=== PATIENT | male | born 1970 | race Caucasian/White ===

== ENCOUNTER 2017-12-15 16:22 | Inpatient (IN) | payer OTHER ==
[~2017-12-15] VITALS: Ht 188 cm; Wt 79.0 kg
[2017-12-15] MEDS ORDERED: HYDROcodone/APAP 5 MG/325 MG (LORTAB) TAB PO PRN (20:45)
--- NOTE | 2017-12-15 21:03 | PM&R Post Admission Assessment ---
Post Admission Physician Asses The preadmission screen agrees with the post admission assessment that the patient is a good candidate for inpatient rehabilitation. The patient will have a comprehensive program of inpatient rehabilitation with a goal of maximizing level of functional independence prior to discharge home with family and HHC. The patient will have PT/OT ninety minutes per day, each discipline, five days a week for gait, strengthening, conditioning, balance, ADLs, any patient/family/caregiver training as necessary. Speech therapy to do cognitive assessment and treat as indicated. Rehabilitation nursing to assist with bowel, bladder, skin, wound care, medication administration, pain management. Aquatic Instructor to assist with discharge planning, community reentry. SCD's for DVT prophylaxis. He appears to be well motivated to participate in three hours of therapy a day. He should be able to tolerate three hours of therapy a day from a medical and surgical standpoint. He should benefit from the three hours of therapy a day. He has a reasonable discharge plan, reasonable discharge rehabilitation goals and a supportive family. He has various comorbidities that need to be closely monitored with medications and treatments adjusted on a daily basis as needed. These include: Osteo of left foot DM HTN Barriers to discharge for this patient who had been independent prior to this are for him to be modified independent to supervision for ADLs and mobility skills prior to discharge home with family and HHC, so as to lessen the burden of the caregivers. Risks for this patient include: 1. Fall 2. Fracture 3. DVT 4. Pulmonary embolism 5. Wound infection 6. Skin breakdown 7. Contractures 8. Poorly controlled pain 9. Urinary retention 10. UTI 11. Respiratory infection 12. Aspiration 13, Poorly controlled DM 14. Poorly controlled HTN Estimated Length of Stay: 14 days Prognosis: Rehab prognosis appears good for goal of discharge home with spouse and HHC modified independent to supervision for ADLs and mobility skills. KEDAR KUHN MD Dec 15, 2017 21:03
[2017-12-15] MEDS: MILK OF MAGNESIA 400 MG/5 ML 30 ML UDC PO PRN (21:45)
[2017-12-15] MEDS: SENNA W/DOCUSATE (SENOKOT S) TABLET PO SCH (21:45)
[2017-12-15] MEDS ORDERED: metFORMIN 500 MG (GLUCOPHAGE) TAB ONE (21:48)
--- NOTE | 2017-12-15 21:50 | HISTORY AND PHYSICAL ---
DATE OF SERVICE: CHIEF COMPLAINT: Difficulty with walking. HISTORY OF PRESENT ILLNESS: The patient is a 47-year-old male, who was admitted to [facility] with pain in the left heel due to diabetic foot ulcer. Orthopedics was consulted. The patient was taken to the OR, where he underwent extensive debridement of the area. Pathology report showed acute and chronic osteomyelitis. ID was consulted. Unasyn was ordered every 6 hours until 01/22/2018. The patient's type 2 diabetes mellitus was managed with metformin. The patient had been independent prior to this and working in the [employer]. He lives in [place] with family. Currently, he requires assistance for his ADLs and mobility skills as well as his scheduled IV antibiotics. He may toe touch on the left. Nonweightbearing left heel.Currently he is Independent for eating and setup for grooming as well as Upper body dressing Min assist for lower body dressing Min assist for transfers,He is min assist for gait with WW PAST MEDICAL HISTORY: Diabetes mellitus type 2.newly diagnosed HTN PAST SURGICAL HISTORY: As per above. ALLERGIES: GLUTEN. FAMILY HISTORY: Noncontributory. SOCIAL HISTORY: He is single and lives with his brother in [facility]. He works for the [employer]. REVIEW OF SYSTEMS: A 10-point review of systems is significant for left foot pain. He does complain of constipation. MEDICATIONS: Amlodipine 10 mg p.o. daily, Lactinex one tablet p.o. b.i.d., lisinopril 20 mg p.o. daily, metformin 1000 mg p.o. b.i.d., hydrocodone/APAP 5 mg 1 tablet p.o. q. 6h. p.r.n. moderate pain, Unasyn IV q. 6h. PHYSICAL EXAMINATION: GENERAL: Significant for a pleasant male appearing his stated age, sitting up at the side of bed in no acute distress. VITAL SIGNS: Blood pressure is 137/93. He is afebrile. HEENT: Vision, speech, hearing is grossly intact. No oral lesion is noted. NECK: Supple without mass. HEART: Regular rhythm. LUNGS: Clear. ABDOMEN: Soft and nontender. Bowel sounds are present. EXTREMITIES: The left foot is ANGELO wrapped. There is no lower edema, no calf tenderness on the right. MUSCULOSKELETAL: The patient has functional active range of motion of both upper extremities and right lower extremity. NEUROLOGIC: Sensation is grossly intact to touch. Cognition is grossly intact. Strength good in both upper limbs,5/5 right lower limb. Left lower limb 4+/5. FINAL IMPRESSION: 1. Ambulatory dysfunction secondary to diabetic foot ulcer resulting in group B strep osteomyelitis status post debridement at [facility] and on IV antibiotics for duration as per above. 2. Diabetes mellitus, controlled with medication. 3. Hypertension, controlled with medication. PLAN: The patient will have a comprehensive program of inpatient rehabilitation with goal of maximizing the level of functional independence prior to discharge home with family and home health care. His commercial insurance has approved his stay here. The patient will have PT, OT 90 minutes per day each discipline, 5 days a week for 2 weeks for gait, strengthening, conditioning, balance, ADLs,as wellas any patient, family caregiver training as necessary, any adaptive equipment and training as necessary. Speech therapy to do cognitive assessment and treat as indicated. Rehabilitation nursing to assist with bowel, bladder, skin, wound care, medication administration, IV antibiotic administration. Routine admission labs. Accu-Cheks b.i.d. or more often as needed. custodial worker to assist with discharge planning, community reentry. I will ask Dr. Lucia and family medicine to assist with medical management as needed.Rn indicates that Patient needs a wound vac-will consult Dr Yeh. ESTIMATED LENGTH OF STAY: Two weeks. PROGNOSIS: Rehab prognosis appears good for goal of discharging home with family modified independent to supervision for ADLs or mobility skills. At some point, he will have his IV antibiotics continued on an outpatient basis. Social work will help facilitate this through coordination with the patient's insurance company. DIET: Carb consistent. CODE STATUS: Full code. Job ID: [id number] DocumentID: [id number] Dictated Date: 12/15/2017 21:13:55 Line Ordering Clinician Date: 12/15/2017 21:49:39 Dictated By: KEDAR KUHN MD [facility]
[2017-12-15] MEDS: metFORMIN 500 MG (GLUCOPHAGE) TAB PO SCH (21:52)
[2017-12-16] MEDS ORDERED: AMPICILLIN/SULBACTAM 3 GM VIAL (UNASYN) ONE ×2 (00:07→01:07)
[2017-12-16] MEDS ORDERED: NS (IVPB) 100 ML ONE ×2 (00:13→05:27)
[2017-12-16] MEDS: AMPICILLIN/SULBACTAM INJECTION 3 GM in NS (IVPB) 100 ML IV SCH ×4 (00:38→18:02)
[2017-12-16 05:49] VITALS: BP 122/79
[2017-12-16 05:52] LABS: BASOPHILS % (AUTO) 1 % (0-10); EOSINOPHILS # (AUTO) 0.1 10^3/uL (0.0-0.3); EOSINOPHILS % (AUTO) 2 % (0-10); HEMATOCRIT 37 % (40-54); HEMOGLOBIN 12.6 G/DL (13.3-17.7); LYMPHOCYTES # (AUTO) 1.2 X 10^3 (1.0-4.0); LYMPHOCYTES % (AUTO) 17 % (12-44); MEAN CORPUSCULAR HEMOGLOBIN 30 PG (25-34); MEAN CORPUSCULAR HGB CONC 34 G/DL (32-36); MEAN CORPUSCULAR VOLUME 88 FL (80-99); MEAN PLATELET VOLUME 9.8 FL (7.4-10.4); MONOCYTES # (AUTO) 0.5 X 10^3 (0.0-1.0); MONOCYTES % (AUTO) 8 % (0-12); NEUTROPHILS # (AUTO) 4.9 X 10^3 (1.8-7.8); NEUTROPHILS % (AUTO) 73 % (42-75); PLATELET COUNT 217 10^3/uL (130-400); RED BLOOD COUNT 4.17 10^6/uL (4.35-5.85); RED CELL DISTRIBUTION WIDTH 13.8 % (10.0-14.5); WHITE BLOOD COUNT 6.8 10^3/uL (4.3-11.0)
[2017-12-16 06:13] LABS: ALANINE AMINOTRANSFERASE 18 U/L (0-55); ALBUMIN 3.3 GM/DL (3.2-4.5); ALKALINE PHOSPHATASE 78 U/L (40-136); BILIRUBIN,TOTAL 0.6 MG/DL (0.1-1.0); BUN/CREATININE RATIO 23; CALCIUM 9.2 MG/DL (8.5-10.1); CARBON DIOXIDE 25 MMOL/L (21-32); CHLORIDE 104 MMOL/L (98-107); CREATININE SERUM 0.74 MG/DL (0.60-1.30); GFR ESTIMATED > 60; GLUCOSE 117 MG/DL (70-105); SODIUM 140 MMOL/L (135-145)
[2017-12-16] MEDS: metFORMIN 500 MG (GLUCOPHAGE) TAB PO SCH ×2 (06:18→18:02)
[2017-12-16] MEDS ORDERED: INFLUENZA TRIvalent 2017-2018 0.5 ML/45 MCG SYR IM ONE (07:00)
--- NOTE | 2017-12-16 08:08 | Consultation ---
History of Present Illness History of Present Illness Patient Consulted On(azucena/time) 12/16/17 08:03 Time Seen by Provider: 08:05 History of Present Illness acute and chronic osteomyelitis of left foot Patient is a 47-year-old white male. Patient first had a crack in his heel and got worse and then infected. patient returns is a diabetic and Patient was sent to [facility] in [place] in the left heel was debrided Patient needs 6 weeks of IV antibiotic Unasyn. Family history father diabetic type II denies asthma TB lung disease cancer Allergies and Home Medications Allergies Coded Allergies: gluten (Verified Allergy, Mild, 12/15/17) Past Nkhmsdy-Ipayls-Vqqbcf Hx Patient Social History Alcohol Use: Rarely Uses Number of Drinks Today: 0 Recreational Drug Use: No Smoking Status: Never a Smoker Recent Foreign Travel: No Contact w/Someone Who Travel: No Recent Infectious Disease Expo: No Recent Hopitalizations: Yes (diabetic foot ulcer) Seasonal Allergies Seasonal Allergies: No Surgeries History of Surgeries: Yes Respiratory History of Respiratory Disorde: No Currently Using CPAP: No Currently Using BIPAP: No Cardiovascular History of Cardiac Disorders: Yes Neurological History of Neurological Disord: No Genitourinary History of Genitourinary Disor: No Gastrointestinal History of Gastrointestinal Di: No Musculoskeletal History of Musculoskeletal Dis: No Endocrine History of Endocrine Disorders: Yes HEENT History of HEENT Disorders: No Cancer History of Cancer: No Psychosocial History of Psychiatric Problem: No Integumentary History of Skin or Integumenta: Yes (very dry skin on feet and legs) Skin/Integumentary Disorders: Recent Skin Changes Blood Transfusions History of Blood Disorders: No Family Medical History Family Medial History: Completed stroke 19 FATHER Diabetes mellitus 19 FATHER Review of Systems-General Constitutional: no symptoms reported EENTM: no symptoms reported Respiratory: no symptoms reported Cardiovascular: no symptoms reported Gastrointestinal: no symptoms reported Genitourinary: no symptoms reported Physical Exam-General Problems Physical Exam Vital Signs Vital Sign - Last 12Hours 12/16/17 05:49 Temp 97.9 Pulse 69 Resp 20 B/P (MAP) 122/79 (93) Pulse Ox 97 O2 Delivery Room Air Capillary Refill : General Appearance: WD/WN, no apparent distress Eyes: Bilateral Eye Normal Inspection HEENT: normal ENT inspection Neck: non-tender, full range of motion Respiratory: chest non-tender, lungs clear, normal breath sounds, no respiratory distress, no accessory muscle use Cardiovascular: regular rate, rhythm Gastrointestinal: non tender Assessment/Plan Assessment/Plan Admission Diagnosis/Plan acute and chronic osteomyelitis of left heel. Diabetes. Hypertension. Clinical Quality Measures DVT/VTE Risk/Contraindication: Risk Factor Score Per Nursin RFS Level Per Nursing on Admit: 4+=Very High ASHWIN DAS DO Dec 16, 2017 08:07
[2017-12-16] MEDS: LACTOBACILLUS Acidoph/Bulgar (LACTINEX/FLORANEX) TAB PO SCH ×2 (08:14→20:28)
[2017-12-16] MEDS: SENNA W/DOCUSATE (SENOKOT S) TABLET PO SCH ×2 (08:14→20:28)
[2017-12-16] MEDS: amLODIPine 5 MG (NORVASC) TAB PO SCH (08:14)
[2017-12-16] MEDS: MILK OF MAGNESIA 400 MG/5 ML 30 ML UDC PO PRN (08:15)
[2017-12-16] MEDS: lisINopril 20 MG (ZESTRIL) TAB PO SCH (08:15)
[2017-12-16 08:31] LABS: CHOLESTEROL 146 MG/DL (< 200); HDL CHOLESTEROL 24 MG/DL (40-60); TRIGLYCERIDES 177 MG/DL (<150); VLDL CHOLESTEROL 35 MG/DL (5-40)
--- NOTE | 2017-12-16 10:36 | ST Cognitive Linguistic Eval ---
Speech Evaluation-General Medical Diagnosis s/p Left Heel Debridement Onset Date: Dec 16, 2017 Therapy Diagnosis Therapy Diagnosis: Cognitive Functions Grossly WNL Precautions Precautions/Isolations: Fall Prevention, Standard Precautions, Pressure Ulcer Referral Referring Physician: Dr. Leoncio Lee Reason for Referral: Evaluation/Treatment Cognitive Evaluation Medical History Pertinent Medical History: DM Current History The patient recently underwent left heel debridement surgery at [facility]. The patient is admitted to [facility] for rehabilitation. Reviewed History: Yes Social History Home: Multilevel Current Living Status: Friend Speech PLF-Current Status Prior Level of Function The patient denied prior challenges with speech, language, or cognition. Subjective The patient was laying in bed upon entrance. The patient greeted the clinician appropriately and was agreeable to participation in the cognitive evaluation. To note, the patient is extremely verbose and requires frequent redirection to task and topic. Language Eval: Auditory Comprehends Simple Yes/No Ques: Functional Indent/Objects [place]: Functional Ident/Pics in Multiple [place]: Functional Follows 1-Step Commands: Functional Follows Complex Directions: Functional Follows General Conversations: Functional Language Eval: Verbal Language Completes Spontaneous Greeting: Functional Produces Auto, Serial Info: Functional Imitates Simple Words/Phrases: Functional Word Finding: Functional Requests Basic Needs: Functional States Basic Personal Info: Functional Expresses Complex Ideas: Functional Cognitive Patient Orientation The patient was independently oriented to self, location, city, month, day of week, and year. Objective Cognitive Domain Attention: Mild Memory: WNL Problem Solving: Mild (Due to patient's baseline attention deficit and impulsivity.) Objective Impression The patient demonstrates cognitive linguistic functions grossly within normal limits. The patient does require frequent redirection to task and intermittent impulsivity. Communication/Social Cognition Comprehension: 5 Expression: 5 Social Interaction: 5 Problem Solvin Memory: 5 Speech Patient Assess Expression of Ideas/Wants: Expression (4) Understanding V[place]al Content: Understands (4) Brief Interview-Mental Status: Yes Repetition of Three Words: Three (3) Temporal Orientation: Year: Correct (3) Temporal Orientation: Month: Accurate within 5 days(2) Temporal Orientation: Day: Correct (1) Recall : Wear to say "Sock": Yes, no cue required (2) Recall : Color: Yes, no cue required (2) Recall : Bed: Yes, no cue required (2) Speech-Plan Treatment Plan Speech Therapy Treatment Plan: Discontinue ST Evaluation, only. Frequency: Modified Program (IRF) Estimated Hrs Per Day: Other Rehab Potential: Fair Safety Risks/Education Teaching Recipient: Patient Teaching Methods: Discussion Response to Teaching: Verbalize Understanding Education Topics Provided: Results, Recommendations, Plan of Care Time Speech Therapy Time In: 09:30 Speech Therapy Time Out: 09:50 Total Billed Time: 20 Billed Treatment Time 1, BHAVNA LOPEZ Dec 16, 2017 10:35
--- NOTE | 2017-12-16 11:55 | Physical Therapy Evaluation ---
PT Evaluation-General Medical Diagnosis Admission Date Dec 15, 2017 at 19:00 Medical Diagnosis: s/p Left Heel Debridement Onset Date: Dec 08, 2017 Therapy Diagnosis Therapy Diagnosis: Poor balance, activity tolerance, strength Height/Weight Height (Feet): 6 Height (Inches): 2.00 Weight (Pounds): 176 Weight (Ounces): 9.0 Precautions Precautions/Isolations: Fall Prevention, Standard Precautions, Pressure Ulcer Weight Bear Status Right Lower Extremity: Right Full Weight Bearing Left Lower Extremity: Left Touch Toe Bearing Patient is toe touch on the left but heel is not allowed to touch the floor. Referral Physician: Leoncio Lee MD Reason for Referral: Evaluation/Treatment Medical History Pertinent Medical History: DM, HTN Additional Medical History Chronic osteomyelitis Current History Pt presented with acute and chronic osteomyeltitis and a diabetic foot ulcer on the L heel. Reviewed History: Yes Social History Home: Multilevel Current Living Status: Friend Entry Into Home: Stairs With Railing PT Steps Into Home: 1 PT Steps Inside Home: 12 Pt lives with two male roommates Prior/Core FIM Prior Level of Function Functional [place] Measure 0=Not Assessed/NA 4=Minimal Assistance 1=Total Assistance 5=Supervision or Setup 2=Maximal Assistance 6=Modified [place] 3=Moderate Assistance 7=Complete [place] Bed Mobility: 7 Transfers (B,C,W/C) (FIM): 7 Gait: 7 Locomotion: 7 Pt did not use any AD prior to admission. PT Evaluation-Current Subjective Pt is sitting in bed in room pre tx and has no complaints of bed. Pt agrees to PT. Pain Numeric Pain Scale: 0-No Pain Pt/Family Goals [place] at home Objective Patient Orientation: Person, Place, Situation ANGELO wrap on the L heel. Pt reports he is receiving a wound vac later this afternoon. ROM/Strength ROM Lower Extremities WNL Strenght Lower Extremities Grossly 5/5 RLE, 4+/5 LLE Neuromuscular (Tone, Coordination, Reflexes) NT Sensory Vision: Functional Hearing: Functional Sensation Right Lower Extremit: Intact Sensation Left Lower Extremity: Intact Sensation Lower Extremities Pt reported the ANGELO wrap makes it difficult to feel on the bottom of the foot. Transfers Functional [place] Measure 0=Not Assessed/NA 4=Minimal Assistance 1=Total Assistance 5=Supervision or Setup 2=Maximal Assistance 6=Modified [place] 3=Moderate Assistance 7=Complete IndependenceIRFPAI Quality Coding Scale 6 Independent with activity with or without an assistive device 5 Patient requires set up or clean up by helper. Patient completes activity by themselves 4 Supervision or touching assist (CGA). [place] provide cues , steadying assist 3 The helper provides less than half the effort to complete the activity 2 The helper provides more than half the effort to complete the activity 1 Dependent. The helper does all the effort to complete an activity 7 Patient refused to complete or attempt activity 9 The patient did not perform the activity before the current illness or injury 88 Not attempted due to Medical conditions or safety concerns Transfers (B, C, W/C) (FIM): 4 Scootin Rollin Roll Left to Right (QC): 4 Supine to/from Sit: 5 Sit to/from Stand: 5 Sit to Lying (QC): 4 Lying to Sitting/Side of Bed(Q: 4 Sit to Stand (QC): 4 Chair/Cgv-dn-Ohtvt Xfer(QC): 4 Car Transfer (QC): 4 Pt requires supervision during all transfers. Pt needs reminders for safety and hand placement. Gait Does the Patient Walk?: Yes Mode of Locomotion: Walk Anticipated Mode of Locomotion: Walk Gait (FIM): 5 Distance (FIM): 3=150 ft Walk 10 feet (QC): 4 Walk 50 ft with 2 Turns(QC): 4 Walk 150 ft (QC): 4 Walking 10ft/uneven surface-QC: 4 Distance: 300 feet x1, 100 feet x1 Gait Level of Assist: 5 Gait Persons Needed: 1 Gait Assistive Device: FWW Comments/Gait Description Pt is TTWB on the LLE. On the RLE, pt does not achieve heel-to-toe gait pattern. Pt reports no pain or weakness in the RLE. This may be due to compensation of the TTWB precaution. Pt presents with reciprocal gait pattern. Wheelchair Training Does the Pt Use a Wheelchair?: No Stairs Stairs (FIM): 5 #of Steps: 12 Level of Assist: 5 1 Step (curb) (QC): 4 4 Steps (QC): 4 12 Steps (QC): 4 Balance Sitting Static: Normal Sitting Dynamic: Normal Standing Static: Fair Standing Dynamic: Fair Picking up an Object (QC): 4 Special Test Comments [place] Balance Assessment: indicating moderate fall risk Treatment Pt performed balance exercises in the form of sit to stands and standing with eyes closed. Assessment/Needs Pt requires SBA during all transfers. Pt requires CGA while using stairs. Pt is impulsive and requires verbal cues for safety and hand placement. According to the Tinetti, pt had trouble turning 360 degrees, sit to stand transfer, and standing with eyes closed. Pt was unsteady while turning and with standing with eyes closed. Pt required more than one attempt to stand without using hands. Pt will benefit from formal PT services to address the impairments mentioned. Patient does bear weight through the left toes but keeps his heel off the ground. Rehab Potential: Fair Post Rehab Potential-Barriers: Diabetic foot ulcer on L heel Equipment Needs FWW PT Short Term Goals Short Term Goals Time Frame: Dec 23, 2017 Transfers (B,C,W/C) (FIM): 6 Gait (FIM): 5 Gait Distance Comment: 500' Gait Level of Assist: 6 Gait Assistive Device: FWW PT Job Interviewer Goals Senior Care Goals PT Job Interviewer Goals Time Frame: Jan 06, 2018 Transfers (B,C,W/C) (FIM): 6 Sit to Lying (QC): 6 Lying-Sitting on Side/Bed(QC): 6 Sit to Stand (QC): 6 Rollin Roll Left to Right (QC): 6 Chair/Ebi-ut-Peppo Xfer(QC): 6 Car Transfer (QC): 6 Does the Patient Walk: Yes Gait (FIM): 6 Distance: 800' Walk 10 feet (QC): 6 Walk 10ft-Uneven Surface(QC): 6 Walk 50ft with 2 Turns (QC): 6 Walk 150 ft (QC): 6 Gait Level of Assist: 6 Gait Assistive Device: FWW Does the Pt use WC or Scooter?: No Stairs (FIM): 6 # of Steps: 12 1 Step (curb) (QC): 6 4 Steps (QC): 6 12 Steps (QC): 6 Stairs Level Of Assist: 6 Picking up an Object (QC): 6 PT Plan Problem List Problem List: Activity Tolerance, Functional Strength, Safety, Balance, Gait, Transfer, Bed Mobility, ROM Treatment/Plan Treatment Plan: Continue Plan of Care Treatment Plan: Bed Mobility, Education, Functional Activity My, Functional Strength, Group Therapy, Gait, Safety, Therapeutic Exercise, Transfers Treatment Duration: Jan 06, 2018 Frequency: At least 5 of 7 days/Wk (IRF) Estimated Hrs Per Day: 1.5 hours per day Patient and/or Family Agrees t: Yes Safety Risks/Education Patient Education: Gait Training, Transfer Techniques, Steps, Reviewed Precautions, Correct Positioning, Safety Issues Teaching Recipient: Patient Teaching Methods: Demonstration, Discussion Response to Teaching: Reinforcement Needed Discharge Recommendations Plan Pt will improve bed mobility, gait training, and stair training, as well as activity tolerance and balance in order to be independent at home. Therapy D/C Recommendations: Home Independently Equpiment Recommendations-D/C: Front Wheeled Walker Time/GCodes Time In: 1100 Time Out: 1200 Total Billed Treatment Time: 60 Total Billed Treatment 1 visit 30 min EVM 15 min EX 15' NM THAIS LOPES PT Dec 16, 2017 11:55
--- NOTE | 2017-12-16 12:51 | Occupational Therapy Eval ---
OT Evaluation-General/PLF Medical Diagnosis Admission Date Dec 15, 2017 at 19:00 Medical Diagnosis: s/p Left Heel Debridement Onset Date: Dec 16, 2017 Therapy Diagnosis Therapy Diagnosis: decreased self care skills Height/Weight Height (Feet): 6 Height (Inches): 2.00 Weight (Pounds): 176 Weight (Ounces): 9.0 Precautions Precautions/Isolations: Fall Prevention, Standard Precautions, Pressure Ulcer Safety Interventions: Move Closer to Desk Weight Bear Status Weight Bearing Restriction: Touch Toe Bearing Location Restriction: L LE Referral Physician: Leoncio Lee MD Medical History Pertinent Medical History: DM, HTN Current History Pt had diabetic ulcer on left heel. Presented with osteomyelitis Reviewed History: Yes Social History Home: Multilevel Current Living Status: Friend Entry Into Home: Stairs With Railing Steps Into Home: 1 Steps Inside Home: 12 ADL-Prior Level of Function ADL PLOF Comments Pt reports being independent with all self care and mobility. Works multimedia editor. DME/Equipment: Grab Bars, Shower, Tub/Shower Drive Self: Yes OT Current Status Subjective Pt in bed, agrees to therapy. Pt denies pain at this time. Mental Status/Objective Patient Orientation: Person, Place, Situation Current Glasses/Contacts: No Hearing Aids: No Dentures/Partials: No Hand Dominance: Right Upper Extremity ROM Grossly WFL Upper Extremity Coordination Intact Upper Extremity Sensation Intact per pt report Upper Extremity Strength Grossly WFL ADL-Treatment ADL-Current Pt supine to sit with modified independence. Pt completed sponge bath while seated EOB. Upper body bathing completed with set up. Pt able to wash lower body with SBA for balance. Left foot not addressed secondary to dressing on heel. Don pullover shirt with set up. Pt donned underwear with SBA for standing balance during pant hike. Pt required minimal assistance to thread left LE through pant leg, but was able to complete rest of task with SBA. Pt doffed/ donned right sock with set up. Pt declined to remove left sock secondary to dressing on heel. Gait to restroom with FWW. Pt able to maintain weight bearing status. Pt stood at sink for grooming tasks. Pt brushed teeth and combed hair with set up. Pt did not have any LOB while standing and was able to maintain TTWB. Pt demonstrated ability to perform toilet transfer with SBA using grab bar. Pt returned to EOB with needs met and PT present after session. Functional [place] Measure 0=Not Assessed/NA 4=Minimal Assistance 1=Total Assistance 5=Supervision or Setup 2=Maximal Assistance 6=Modified [place] 3=Moderate Assistance 7=Complete IndependenceIRFPAI Quality Coding Scale 6 Independent with activity with or without an assistive device 5 Patient requires set up or clean up by helper. Patient completes activity by themselves 4 Supervision or touching assist (CGA). [place] provide cues , steadying assist 3 The helper provides less than half the effort to complete the activity 2 The helper provides more than half the effort to complete the activity 1 Dependent. The helper does all the effort to complete an activity 7 Patient refused to complete or attempt activity 9 The patient did not perform the activity before the current illness or injury 88 Not attempted due to Medical conditions or safety concerns Eating (FIM): 7 (Pt reports feeding self and managing containers without assistance) Eating (QC): 6 Grooming (FIM): 5 Oral Hygiene (QC): 5 Bathing (FIM): 5 Shower/Bathe Self (QC): 4 Upper Body Dressing (FIM): 5 Upper Body Dressing (QC): 5 Lower Body Dressing (FIM): 4 Lower Body Dressing (QC): 4 On/Off Footwear (QC): 5 Toilet/Commode Transfer (FIM): 5 Toilet Transfer (QC): 4 Shower Transfer (FIM): 0 Education OT Patient Education: Rehab process Teaching Recipient: Patient Teaching Methods: Discussion Response to Teaching: Verbalize Understanding OT Short Term Goals Short Term Goals Transfers (B,C,W/C) (FIM): 6 1=Demonstrate adherence to instructed precautions during ADL tasks. 2=Patient will verbalize/demonstrate understanding of assistive devices/ modifications for ADL. 3=Patient will improve strength/tolerance for activity to enable patient to perform ADL's. OT Retirement Goals Mobile Architect Goals Time Frame: Jan 06, 2018 Eating (FIM): 7 Eating (QC): 6 Groomin Oral Hygiene (QC): 6 Bathing(FIM): 6 Shower/Bathe Self (QC): 6 Upper Body Dressing(FIM): 6 Upper Body Dressing (QC): 6 Lower Body Dressing(FIM): 6 Lower Body Dressing (QC): 6 On/Off Footwear (QC): 6 Toileting(FIM): 6 Toileting Hygiene (QC): 6 Toilet/Commode Transfer(FIM): 6 Toilet/Commode Transfer (QC): 6 Shower Transfer(FIM): 6 (If cleared to shower) Additional Goals: 2-Verbalize Understanding, 3-ImproveStrength/My 1=Demonstrate adherence to instructed precautions during ADL tasks. 2=Patient will verbalize/demonstrate understanding of assistive devices/ modifications for ADL. 3=Patient will improve strength/tolerance for activity to enable patient to perform ADL's. OT Education/Plan Problem List/Assessment Assessment: Decreased UE Strength, Dependent Transfers, Impaired Funct Balance , Impaired Self-Care Skills Pt to benefit from skilled OT intervention for ADL training, transfers, strengthening, and home safety education to increase level of independence and allow safe return home. Discharge Recommendations Plan/Recommendations: Continue POC Treatment Plan/Plan of Care Treatment,Training & Education: Yes Patient would benefit from OT for education, treatment and training to promote independence in ADL's, mobility, safety and/or upper extremity function for ADL' s. Plan of Care: ADL Retraining, Functional Mobility, Group Exercise/Act as Ind, UE Funct Exercise/Act Treatment Duration: Jan 06, 2018 Frequency: At least 5 of 7 days/Wk (IRF) Estimated Hrs Per Day: 1.5 hours per day Agreement: Yes Rehab Potential: Good Time/GCodes Start Time: 10:00 Stop Time: 11:00 Total Time Billed (hr/min): 60 Billed Treatment Time 1 visit, EVL(15minutes), ADLx3(45minutes) CHANCE JIMENEZ OT Dec 16, 2017 12:51
--- NOTE | 2017-12-16 14:21 | Occupational Ther Daily Note ---
OT Current Status-Daily Note Subjective Pt sitting EOB, agrees to treatment. Pt has no c/o pain. Mental Status/Objective Functional [place] Measure 0=Not Assessed/NA 4=Minimal Assistance 1=Total Assistance 5=Supervision or Setup 2=Maximal Assistance 6=Modified [place] 3=Moderate Assistance 7=Complete [place] ADL-Treatment Functional [place] Measure 0=Not Assessed/NA 4=Minimal Assistance 1=Total Assistance 5=Supervision or Setup 2=Maximal Assistance 6=Modified [place] 3=Moderate Assistance 7=Complete IndependenceIRFPAI Quality Coding Scale 6 Independent with activity with or without an assistive device 5 Patient requires set up or clean up by helper. Patient completes activity by themselves 4 Supervision or touching assist (CGA). [place] provide cues , steadying assist 3 The helper provides less than half the effort to complete the activity 2 The helper provides more than half the effort to complete the activity 1 Dependent. The helper does all the effort to complete an activity 7 Patient refused to complete or attempt activity 9 The patient did not perform the activity before the current illness or injury 88 Not attempted due to Medical conditions or safety concerns Other Treatment Pt performed gait to therapy gym with FWW, TTWB left LE with cues for walker safety. Arm bike x12 minutes to increase overall strength and activity tolerance needed for functional tasks. Pt completed task with moderate resistance and steady pace. No rest breaks needed. Pt performed bilateral UE exercises to increase strength needed for ADLs and transfers. Pt performed shoulder flexion, abduction, biceps curls, and triceps extension exercises x25 reps with moderate resistance (Red) theraband. Pt returned to room, in bed with needs met after session. OT Short Term Goals Short Term Goals Transfers (B,C,W/C) (FIM): 6 1=Demonstrate adherence to instructed precautions during ADL tasks. 2=Patient will verbalize/demonstrate understanding of assistive devices/ modifications for ADL. 3=Patient will improve strength/tolerance for activity to enable patient to perform ADL's. OT Crust Sorter Goals Crust Sorter Goals Time Frame: Jan 06, 2018 Eating (FIM): 7 Eating (QC): 6 Groomin Oral Hygiene (QC): 6 Bathing(FIM): 6 Shower/Bathe Self (QC): 6 Upper Body Dressing(FIM): 6 Upper Body Dressing (QC): 6 Lower Body Dressing(FIM): 6 Lower Body Dressing (QC): 6 On/Off Footwear (QC): 6 Toileting(FIM): 6 Toileting Hygiene (QC): 6 Toilet/Commode Transfer(FIM): 6 Toilet/Commode Transfer (QC): 6 Shower Transfer(FIM): 6 (If cleared to shower) Additional Goals: 2-Verbalize Understanding, 3-ImproveStrength/My 1=Demonstrate adherence to instructed precautions during ADL tasks. 2=Patient will verbalize/demonstrate understanding of assistive devices/ modifications for ADL. 3=Patient will improve strength/tolerance for activity to enable patient to perform ADL's. OT Education/Plan Discharge Recommendations Plan/Recommendations: Continue POC Treatment Plan/Plan of Care Patient would benefit from OT for education, treatment and training to promote independence in ADL's, mobility, safety and/or upper extremity function for ADL' s. Plan of Care: ADL Retraining, Functional Mobility, Group Exercise/Act as Ind, UE Funct Exercise/Act Treatment Duration: Jan 06, 2018 Frequency: At least 5 of 7 days/Wk (IRF) Estimated Hrs Per Day: 1.5 hours per day Agreement: Yes Rehab Potential: Fair Time/GCodes Start Time: 13:30 Stop Time: 14:00 Total Time Billed (hr/min): 30 Billed Treatment Time 1 visit, EXx2(30minutes) CHANCE JIMENEZ OT Dec 16, 2017 14:21
--- NOTE | 2017-12-16 14:45 | PM & R (SOAP) Progress Note ---
Subjective Time Seen by Provider: 08:00 Subjective/Events-last exam Patient was seen in his room this AM Patient Min assist for transfers and gait TTWB LLE.Discussed case with RN Appreciate Dr caballero note and current meds and labs,BG and Triglycerides elevated,Dietary consult ordered DR Yeh to see re need for ongoing wound vac.ST note some impulsivity which affects concentrration and attention which are chronic and she has signed off. Review of Systems Musculoskeletal: leg pain Objective Exam Last Set of Vital Signs Vital Signs Date Time Temp Pulse Resp B/P (MAP) Pulse Ox O2 Delivery O2 Flow Rate FiO2 12/16/17 09:00 Room Air 12/16/17 05:49 97.9 69 20 122/79 (93) 97 Capillary Refill : I&O Intake and Output 12/16/17 00:00 Daily Weight Change No General: Alert, Oriented X3, Cooperative, No Acute Distress HEENT: Atraumatic, PERRLA, EOMI, Mucous Memb Moist/[place] Neck: Supple, No JVD Lungs: Clear to Auscultation Heart: Regular Rate Abdomen: Normal Bowel Sounds, Soft, No Tenderness Extremities: Other (Trace edema left foot wrapped with kerlex) Neuro: Other (Normal strength except left leg which is mildly impaired) Results Lab Laboratory Tests 12/15/17 21:51: Glucometer 259H 12/16/17 05:40: White Blood Count 6.8, Red Blood Count 4.17L, Hemoglobin 12.6L, Hematocrit 37L, Mean Corpuscular Volume 88, Mean Corpuscular Hemoglobin 30, Mean Corpuscular Hemoglobin Concent 34, Red Cell Distribution Width 13.8, Platelet Count 217, Mean Platelet Volume 9.8, Neutrophils (%) (Auto) 73, Lymphocytes (%) (Auto) 17, Monocytes (%) (Auto) 8, Eosinophils (%) (Auto) 2, Basophils (%) (Auto) 1, Neutrophils # (Auto) 4.9, Lymphocytes # (Auto) 1.2, Monocytes # (Auto) 0.5, Eosinophils # (Auto) 0.1, Basophils # (Auto) 0.0, Sodium Level 140, Potassium Level 4.0, Chloride Level 104, Carbon Dioxide Level 25, Anion Gap 11, Blood Urea Nitrogen 17, Creatinine 0.74, Estimat Glomerular Filtration Rate > 60, BUN/ Creatinine Ratio 23, Glucose Level 117H, Calcium Level 9.2, Total Bilirubin 0.6 , Aspartate Amino Transf (AST/SGOT) 19, Alanine Aminotransferase (ALT/SGPT) 18, Alkaline Phosphatase 78, Total Protein 7.0, Albumin 3.3, Triglycerides Level 177H, Cholesterol Level 146, LDL Cholesterol Direct 96, VLDL Cholesterol 35, HDL Cholesterol 24L Assessment/Plan Assessment Acute on chronic osteomyelitis s/p debridement OSH and on IV antibiotics as per H&P DM meds being adjusted HTN controlled with meds MIld attention deficit HLP Plan Continue PT/OT and wound care -Dr Yeh consulted re wound vac Team Conference tomorrow 12-17-17 May need to focus on W/C level of function due to Limited WBS LLE and need for wound vac-Will f/u with DR Yeh re this KEDAR KUHN MD Dec 16, 2017 14:45
--- NOTE | 2017-12-16 15:54 | Physical Therapy Daily Note ---
PT Daily Note-Current Subjective Pt laying Supine in bed upon arrival. Pt agrees to PT for Supine Ex. Pain Numeric Pain Scale: 5-Moderate Pain Location: Left Location Body Site: Foot Pain Description: Ache Mental Status Patient Orientation: Person, Place Attachments: Other-See Comments (DON sahu) Transfers Functional [place] Measure 0=Not Assessed/NA 4=Minimal Assistance 1=Total Assistance 5=Supervision or Setup 2=Maximal Assistance 6=Modified [place] 3=Moderate Assistance 7=Complete IndependenceIRFPAI Quality Coding Scale 6 Independent with activity with or without an assistive device 5 Patient requires set up or clean up by helper. Patient completes activity by themselves 4 Supervision or touching assist (CGA). [place] provide cues , steadying assist 3 The helper provides less than half the effort to complete the activity 2 The helper provides more than half the effort to complete the activity 1 Dependent. The helper does all the effort to complete an activity 7 Patient refused to complete or attempt activity 9 The patient did not perform the activity before the current illness or injury 88 Not attempted due to Medical conditions or safety concerns Weight Bearing Right Lower Extremity: Right Full Weight Bearing Left Lower Extremity: Left Touch Toe Bearing Patient is toe touch on the left but heel is not allowed to touch the floor. Exercises Supine Ex: Ankle pumps, Quad Set, Straight leg raise, Hip abd/add Supine Reps: 20 Treatments Pt completes Supine Ex in bed. Pt resting in bed at end of tx with all needs met. Assessment Current Status: Good Progress Pt is continuing to get stronger. PT Short Term Goals Short Term Goals Time Frame: Dec 23, 2017 Transfers (B,C,W/C) (FIM): 6 Gait (FIM): 5 Gait Distance Comment: 500' Gait Level of Assist: 6 Gait Assistive Device: FWW PT Chcf Goals Chcf Goals PT Chcf Goals Time Frame: Jan 06, 2018 Transfers (B,C,W/C) (FIM): 6 Sit to Lying (QC): 6 Lying-Sitting on Side/Bed(QC): 6 Sit to Stand (QC): 6 Rollin Roll Left to Right (QC): 6 Chair/Ols-vq-Cxmls Xfer(QC): 6 Car Transfer (QC): 6 Does the Patient Walk: Yes Gait (FIM): 6 Distance: 800' Walk 10 feet (QC): 6 Walk 10ft-Uneven Surface(QC): 6 Walk 50ft with 2 Turns (QC): 6 Walk 150 ft (QC): 6 Gait Level of Assist: 6 Gait Assistive Device: FWW Does the Pt use WC or Scooter?: No Stairs (FIM): 6 # of Steps: 12 1 Step (curb) (QC): 6 4 Steps (QC): 6 12 Steps (QC): 6 Stairs Level Of Assist: 6 Picking up an Object (QC): 6 PT Plan Problem List Problem List: Activity Tolerance, Functional Strength, Balance, Gait Treatment/Plan Treatment Plan: Continue Plan of Care Treatment Plan: Bed Mobility, Education, Functional Activity My, Functional Strength, Group Therapy, Gait, Safety, Therapeutic Exercise, Transfers Treatment Duration: Jan 06, 2018 Frequency: At least 5 of 7 days/Wk (IRF) Estimated Hrs Per Day: 1.5 hours per day Patient and/or Family Agrees t: Yes Safety Risks/Education Patient Education: Correct Positioning, Safety Issues Teaching Recipient: Patient Teaching Methods: Discussion Response to Teaching: Verbalize Understanding Time/GCodes Time In: 1430 Time Out: 1450 Total Billed Treatment Time: 20 Total Billed Treatment 1, EX (20m) YOHANA CARABALLO SCIENTIFIC INFORMATICS LEADER Dec 16, 2017 15:54
[2017-12-16 18:00] VITALS: BP 123/80
[2017-12-16] MEDS ORDERED: DAKIN'S 1/4 STRENGTH (0.125%) 473 ML BTL TOP SCH (19:45)
--- NOTE | 2017-12-16 19:45 | Wound Care Progress Note ---
Subjective Subjective Subjective/Events-last exam The patient is a 47 year old male, 6 days s/p debridement of infected L heel ulcer and calcaneus with osteomyelitis. The patient's wound demonstrates a significant amount of necrotic tissue, requiring debridement prior to resuming NPWT. Objective Exam Last Set of Vital Signs Vital Signs Date Time Temp Pulse Resp B/P (MAP) Pulse Ox O2 Delivery O2 Flow Rate FiO2 12/16/17 18:00 97.8 80 20 123/80 (94) 98 Room Air Capillary Refill : I&O Intake and Output 12/15/17 23:59 Daily Weight Change No Results Lab Laboratory Tests 12/15/17 21:51: Glucometer 259H 12/16/17 05:40: White Blood Count 6.8, Red Blood Count 4.17L, Hemoglobin 12.6L, Hematocrit 37L, Mean Corpuscular Volume 88, Mean Corpuscular Hemoglobin 30, Mean Corpuscular Hemoglobin Concent 34, Red Cell Distribution Width 13.8, Platelet Count 217, Mean Platelet Volume 9.8, Neutrophils (%) (Auto) 73, Lymphocytes (%) (Auto) 17, Monocytes (%) (Auto) 8, Eosinophils (%) (Auto) 2, Basophils (%) (Auto) 1, Neutrophils # (Auto) 4.9, Lymphocytes # (Auto) 1.2, Monocytes # (Auto) 0.5, Eosinophils # (Auto) 0.1, Basophils # (Auto) 0.0, Sodium Level 140, Potassium Level 4.0, Chloride Level 104, Carbon Dioxide Level 25, Anion Gap 11, Blood Urea Nitrogen 17, Creatinine 0.74, Estimat Glomerular Filtration Rate > 60, BUN/ Creatinine Ratio 23, Glucose Level 117H, Calcium Level 9.2, Total Bilirubin 0.6 , Aspartate Amino Transf (AST/SGOT) 19, Alanine Aminotransferase (ALT/SGPT) 18, Alkaline Phosphatase 78, Total Protein 7.0, Albumin 3.3, Triglycerides Level 177H, Cholesterol Level 146, LDL Cholesterol Direct 96, VLDL Cholesterol 35, HDL Cholesterol 24L 12/16/17 16:02: Glucometer 113H JESUS ALLEN MD Dec 16, 2017 19:45
[2017-12-17] MEDS: AMPICILLIN/SULBACTAM INJECTION 3 GM in NS (IVPB) 100 ML IV SCH ×4 (00:26→17:32)
[2017-12-17 05:50] VITALS: BP 120/74
[2017-12-17 05:51] VITALS: BP 127/77
[2017-12-17] MEDS: metFORMIN 500 MG (GLUCOPHAGE) TAB PO SCH ×2 (06:26→17:31)
--- NOTE | 2017-12-17 08:08 | Progress Note (SOAP) ---
Subjective Time Seen by Provider: 08:05 Subjective/Events-last exam osteomyelitis of foot. Diabetes. Sugars are doing good on metformin. Patient realizes he has to keep his diabetes under control Patient have debridement today before wound VAC put on Objective Exam Vital Signs Date Time Temp Pulse Resp B/P (MAP) Pulse Ox O2 Delivery O2 Flow Rate FiO2 12/17/17 05:51 98.4 70 18 127/77 (94) 95 Room Air 12/17/17 05:50 98.4 67 17 120/74 (89) 96 Room Air 12/16/17 21:00 Room Air 12/16/17 18:00 97.8 80 20 123/80 (94) 98 Room Air 12/16/17 09:00 Room Air I & O 12/17/17 07:00 Intake Total 2142 ml Balance 2142 ml Capillary Refill : General Appearance: No Apparent Distress, WD/WN Results Lab Laboratory Tests 12/16/17 16:02: Glucometer 113H 12/17/17 05:12: Glucometer 90 Assessment/Plan Assessment/Plan Assess & Plan/Chief Complaint acute and chronic osteomyelitis of left heel. Diabetes. Hypertension.. . 12/17/17. Acute and chronic osteomyelitis of left feels. Diabetes. Hypertension. Patient needs debridement of foot before wound VAC put on Clinical Quality Measures DVT/VTE Risk/Contraindication: Risk Factor Score Per Nursin RFS Level Per Nursing on Admit: 4+=Very High ASHWIN DAS DO Dec 17, 2017 08:08
--- NOTE | 2017-12-17 08:16 | PM & R (SOAP) Progress Note ---
Subjective Time Seen by Provider: 07:55 Subjective/Events-last exam Patient was seen in his room this AM Wound vac in place Appreciate DR Kim note.Patient min assist for dressing. Objective Exam Last Set of Vital Signs Vital Signs Date Time Temp Pulse Resp B/P (MAP) Pulse Ox O2 Delivery O2 Flow Rate FiO2 12/17/17 05:51 98.4 70 18 127/77 (94) 95 Room Air Capillary Refill : I&O Intake and Output 12/17/17 00:00 Intake Total 1700 ml Balance 1700 ml Intake Oral 1300 ml IV Total 400 ml # Voids 6 # Bowel Movements 1 General: Alert, Oriented X3, Cooperative, No Acute Distress HEENT: Atraumatic, PERRLA, EOMI, Mucous Memb Moist/[place] Neck: Supple, No JVD Lungs: Clear to Auscultation Heart: Regular Rate Abdomen: Normal Bowel Sounds, Soft, No Tenderness Extremities: Other (Trace edema left foot wrapped with kerlex) Neuro: Other (Normal strength except left leg which is mildly impaired) Results Lab Laboratory Tests 12/15/17 21:51: Glucometer 259H 12/16/17 05:40: White Blood Count 6.8, Red Blood Count 4.17L, Hemoglobin 12.6L, Hematocrit 37L, Mean Corpuscular Volume 88, Mean Corpuscular Hemoglobin 30, Mean Corpuscular Hemoglobin Concent 34, Red Cell Distribution Width 13.8, Platelet Count 217, Mean Platelet Volume 9.8, Neutrophils (%) (Auto) 73, Lymphocytes (%) (Auto) 17, Monocytes (%) (Auto) 8, Eosinophils (%) (Auto) 2, Basophils (%) (Auto) 1, Neutrophils # (Auto) 4.9, Lymphocytes # (Auto) 1.2, Monocytes # (Auto) 0.5, Eosinophils # (Auto) 0.1, Basophils # (Auto) 0.0, Sodium Level 140, Potassium Level 4.0, Chloride Level 104, Carbon Dioxide Level 25, Anion Gap 11, Blood Urea Nitrogen 17, Creatinine 0.74, Estimat Glomerular Filtration Rate > 60, BUN/ Creatinine Ratio 23, Glucose Level 117H, Calcium Level 9.2, Total Bilirubin 0.6 , Aspartate Amino Transf (AST/SGOT) 19, Alanine Aminotransferase (ALT/SGPT) 18, Alkaline Phosphatase 78, Total Protein 7.0, Albumin 3.3, Triglycerides Level 177H, Cholesterol Level 146, LDL Cholesterol Direct 96, VLDL Cholesterol 35, HDL Cholesterol 24L 12/16/17 16:02: Glucometer 113H 12/17/17 05:12: Glucometer 90 Assessment/Plan Assessment Acute on chronic osteomyelitis s/p debridement OSH and on IV antibiotics as per H&P and now with wound vac DM meds being adjusted HTN controlled with meds MIld attention deficit HLP Plan Continue PT/OT and wound care -Dr Yeh consulted re wound vac-done May need to focus on W/C level of function due to Limited WBS LLE and need for wound vac-Will f/u with DR Yeh re this Team Conference to be held later today-See report for full functional update and POC and KEDAR GRANADOS MD Dec 17, 2017 08:16
[2017-12-17] MEDS: amLODIPine 5 MG (NORVASC) TAB PO SCH (08:43)
[2017-12-17] MEDS: SENNA W/DOCUSATE (SENOKOT S) TABLET PO SCH ×2 (08:43→20:16)
[2017-12-17] MEDS: lisINopril 20 MG (ZESTRIL) TAB PO SCH (08:43)
[2017-12-17] MEDS: LACTOBACILLUS Acidoph/Bulgar (LACTINEX/FLORANEX) TAB PO SCH ×2 (08:43→20:16)
--- NOTE | 2017-12-17 09:45 | Physical Therapy Daily Note ---
PT Daily Note-Current Subjective Pt. agrees to Rx. Wants very much to do well and asks this LIQUID HYDROGEN PLANT OPERATOR frequently "Am I doing good"? Denies pain in heel Pain Numeric Pain Scale: 0-No Pain Appearance noted kyphosis, head forward posture, unable to come to neutral Mental Status Patient Orientation: Person, Place, Time, Situation [place] to be placed today Transfers Functional [place] Measure 0=Not Assessed/NA 4=Minimal Assistance 1=Total Assistance 5=Supervision or Setup 2=Maximal Assistance 6=Modified [place] 3=Moderate Assistance 7=Complete IndependenceIRFPAI Quality Coding Scale 6 Independent with activity with or without an assistive device 5 Patient requires set up or clean up by helper. Patient completes activity by themselves 4 Supervision or touching assist (CGA). [place] provide cues , steadying assist 3 The helper provides less than half the effort to complete the activity 2 The helper provides more than half the effort to complete the activity 1 Dependent. The helper does all the effort to complete an activity 7 Patient refused to complete or attempt activity 9 The patient did not perform the activity before the current illness or injury 88 Not attempted due to Medical conditions or safety concerns Transfers (B, C, W/C) (FIM): 6 Scootin Rollin Supine to/from Sit: 6 Sit to/from Stand: 6 Weight Bearing Right Lower Extremity: Right Full Weight Bearing Left Lower Extremity: Left Touch Toe Bearing Patient is toe touch on the left but heel is not allowed to touch the floor. Gait Training Does the Patient Walk?: Yes Gait (FIM): 5 Distance (FIM): 3=150 ft (200x2) Gait Level of Assist: 5 Gait Persons Needed: 1 Gait Assistive Device: FWW balance challenges for gait this rx for retro and 360 deg turns and side step, pt. unsafe at times and needed instruction in safety and prudent movement patterns Wheelchair Training Does the Pt Use a Wheelchair?: No Stair Training Stair Training: Handrails/: 2 handrails Stairs (FIM): 6 #of Steps: 16 Stairs: Pattern: Step to Level of Assist: 6 pt. did reciprocal and step to all while NWB on heel. pt. has 12 steps at home with bialt rails. discussed having 2 FWWs, one for ea level of home Exercises Supine Ex: Bridging, Ankle pumps, Quad Set, Rolling, Glut sets, Heel Slides, Knee to chest, Short Arc Quads, Scooting, Straight leg raise, Hip abd/add Supine Reps: 20 Seated Therapy Exercises: Ankle pumps, Sit to stand, Long arc quads, Hip flexion Seated Reps: 12 Assessment Current Status: Good Progress pleasant , regards NWB well but needs education RE: safety and diabetic health PT Short Term Goals Short Term Goals Time Frame: Dec 23, 2017 Transfers (B,C,W/C) (FIM): 6 Gait (FIM): 5 Gait Distance Comment: 500' Gait Level of Assist: 6 Gait Assistive Device: FWW PT Mechanical Assembly Goals Mechanical Assembly Goals PT Mechanical Assembly Goals Time Frame: Jan 06, 2018 Transfers (B,C,W/C) (FIM): 6 Sit to Lying (QC): 6 Lying-Sitting on Side/Bed(QC): 6 Sit to Stand (QC): 6 Rollin Roll Left to Right (QC): 6 Chair/Lpy-jb-Popnb Xfer(QC): 6 Car Transfer (QC): 6 Does the Patient Walk: Yes Gait (FIM): 6 Distance: 800' Walk 10 feet (QC): 6 Walk 10ft-Uneven Surface(QC): 6 Walk 50ft with 2 Turns (QC): 6 Walk 150 ft (QC): 6 Gait Level of Assist: 6 Gait Assistive Device: FWW Does the Pt use WC or Scooter?: No Stairs (FIM): 6 # of Steps: 12 1 Step (curb) (QC): 6 4 Steps (QC): 6 12 Steps (QC): 6 Stairs Level Of Assist: 6 Picking up an Object (QC): 6 PT Plan Treatment/Plan Treatment Plan: Continue Plan of Care Treatment Plan: Bed Mobility, Education, Functional Activity My, Functional Strength, Group Therapy, Gait, Safety, Therapeutic Exercise, Transfers Treatment Duration: Jan 06, 2018 Frequency: At least 5 of 7 days/Wk (IRF) Estimated Hrs Per Day: 1.5 hours per day Patient and/or Family Agrees t: Yes Safety Risks/Education Patient Education: Gait Training, Transfer Techniques, Steps, Correct Positioning, Disease Process, Safety Issues Teaching Recipient: Patient Teaching Methods: Demonstration, Discussion Response to Teaching: Verbalize Understanding, Return Demonstration, Reinforcement Needed Time/GCodes Time In: 845 Time Out: 930 Total Billed Treatment Time: 45 Total Billed Treatment 1,FA15,EX15,GT15 G Codes Necessary: BAMBI Pittman LIQUID HYDROGEN PLANT OPERATOR Dec 17, 2017 09:45
--- NOTE | 2017-12-17 11:31 | Occupational Ther Daily Note ---
OT Current Status-Daily Note Subjective Pt alert, sitting in recliner. Pt agreed to therapy. No c/o pain. Mental Status/Objective Patient Orientation: Person, Place, Time, Situation Functional [place] Measure 0=Not Assessed/NA 4=Minimal Assistance 1=Total Assistance 5=Supervision or Setup 2=Maximal Assistance 6=Modified [place] 3=Moderate Assistance 7=Complete [place] ADL-Treatment Pt stated that he had washed up good yesterday and didn't need any of that today. Pt did agree to grooming in bathroom. Functional [place] Measure 0=Not Assessed/NA 4=Minimal Assistance 1=Total Assistance 5=Supervision or Setup 2=Maximal Assistance 6=Modified [place] 3=Moderate Assistance 7=Complete IndependenceIRFPAI Quality Coding Scale 6 Independent with activity with or without an assistive device 5 Patient requires set up or clean up by helper. Patient completes activity by themselves 4 Supervision or touching assist (CGA). [place] provide cues , steadying assist 3 The helper provides less than half the effort to complete the activity 2 The helper provides more than half the effort to complete the activity 1 Dependent. The helper does all the effort to complete an activity 7 Patient refused to complete or attempt activity 9 The patient did not perform the activity before the current illness or injury 88 Not attempted due to Medical conditions or safety concerns Grooming (FIM): 5 (Supervision standing at sink to complete own grooming.) Oral Hygiene (QC): 4 Other Treatment Pt ambulated to therapy gym with supervision using FWW. Pt completed arm bike for 15 min starting at 50 park resistance (8 min) then 35 park resistance (4 min) 25 park resistance (3 min) staying between 45-50 RPMs to increase strength and activity tolerance for daily functional tasks. Pt requested to decrease resistance each time. Pt then completed 4 dowel rojas exercises with 3# wt attached, 3 sets 10 reps. Arm chair pushups 3 sets 5 reps. Resistive clothes pins 2xs with each hand. After therapy, pt lying in bed with call light /phone in reach. All needs met in room. OT Short Term Goals Short Term Goals Transfers (B,C,W/C) (FIM): 6 1=Demonstrate adherence to instructed precautions during ADL tasks. 2=Patient will verbalize/demonstrate understanding of assistive devices/ modifications for ADL. 3=Patient will improve strength/tolerance for activity to enable patient to perform ADL's. OT Intermediate Goals Intermediate Goals Time Frame: Jan 06, 2018 Eating (FIM): 7 Eating (QC): 6 Groomin Oral Hygiene (QC): 6 Bathing(FIM): 6 Shower/Bathe Self (QC): 6 Upper Body Dressing(FIM): 6 Upper Body Dressing (QC): 6 Lower Body Dressing(FIM): 6 Lower Body Dressing (QC): 6 On/Off Footwear (QC): 6 Toileting(FIM): 6 Toileting Hygiene (QC): 6 Toilet/Commode Transfer(FIM): 6 Toilet/Commode Transfer (QC): 6 Shower Transfer(FIM): 6 (If cleared to shower) Additional Goals: 2-Verbalize Understanding, 3-ImproveStrength/My 1=Demonstrate adherence to instructed precautions during ADL tasks. 2=Patient will verbalize/demonstrate understanding of assistive devices/ modifications for ADL. 3=Patient will improve strength/tolerance for activity to enable patient to perform ADL's. OT Education/Plan Discharge Recommendations Plan/Recommendations: Continue POC Treatment Plan/Plan of Care Patient would benefit from OT for education, treatment and training to promote independence in ADL's, mobility, safety and/or upper extremity function for ADL' s. Plan of Care: ADL Retraining, Functional Mobility, Group Exercise/Act as Ind, UE Funct Exercise/Act Treatment Duration: Jan 06, 2018 Frequency: At least 5 of 7 days/Wk (IRF) Estimated Hrs Per Day: 1.5 hours per day Agreement: Yes Rehab Potential: Fair Time/GCodes Start Time: 10:00 Stop Time: 11:00 Total Time Billed (hr/min): 60 Billed Treatment Time 1 visit-ADL 1 (15 min) EX 3 (45 min) SILVINO MOMIN Dec 17, 2017 11:31
--- NOTE | 2017-12-17 14:59 | Therapy Group Daily Note ---
Therapy Daily Group Note Patient Education Topic Other List Below (relaxation strategies, Rehab description and expectations) Exercises LE Seated Exercise, UE Exercise Other/Notes Pt. attended group PT OT session. Pt. ambulated with FWW fo and from and wanted to walk further after for exercise. Pt. SBA to Mod I for ll TRFs. Pt. participated well in group and contributed . Pt. introduced themselves to others and shared their favorite way to relax. This pt. states he enjoys fishing whether he catches anything or not. Pt. participated in group seated U& L extremity exercise as he could . Exercise was pt. lead as pts. read and directed other using written illustrated guide card to demonstrate exercise to others. Pt. to room after group with SBA to bed. Pt. pulls self up in bed indep. call luke at hand Start Time: 13:00 Stop Time: 14:30 Total Billed Treatment Time: 90 Total Billed Treatment 1,GRP BAMBI PEDROZA EDUCATION RESEARCH ANALYST Dec 17, 2017 14:59
[2017-12-17 19:00] VITALS: BP 110/72
[2017-12-18] MEDS: AMPICILLIN/SULBACTAM INJECTION 3 GM in NS (IVPB) 100 ML IV SCH ×4 (00:44→17:46)
[2017-12-18 06:04] VITALS: BP 118/74
[2017-12-18] MEDS: metFORMIN 500 MG (GLUCOPHAGE) TAB PO SCH ×2 (06:42→17:46)
[2017-12-18] MEDS: amLODIPine 5 MG (NORVASC) TAB PO SCH (07:55)
[2017-12-18] MEDS: SENNA W/DOCUSATE (SENOKOT S) TABLET PO SCH ×2 (07:56→21:32)
[2017-12-18] MEDS: LACTOBACILLUS Acidoph/Bulgar (LACTINEX/FLORANEX) TAB PO SCH ×2 (07:56→21:32)
[2017-12-18] MEDS: lisINopril 20 MG (ZESTRIL) TAB PO SCH (07:56)
--- NOTE | 2017-12-18 08:36 | Progress Note (SOAP) ---
Subjective Time Seen by Provider: 08:32 Subjective/Events-last exam diabetes. osteomyelitis of feel. to have debridement today. Have wound VAC tomorrow. Patient voices no complaints Objective Exam Vital Signs Date Time Temp Pulse Resp B/P (MAP) Pulse Ox O2 Delivery O2 Flow Rate FiO2 12/18/17 06:04 98.6 60 16 118/74 (89) 99 Room Air 12/17/17 20:20 Room Air 12/17/17 19:00 96.9 71 14 110/72 (85) Room Air 12/17/17 09:19 Room Air I & O 12/18/17 07:00 Intake Total 2440 ml Balance 2440 ml Capillary Refill : General Appearance: No Apparent Distress, WD/WN Results Lab Laboratory Tests 12/17/17 16:08: Glucometer 141H 12/18/17 05:16: Glucometer 88 Assessment/Plan Assessment/Plan Assess & Plan/Chief Complaint acute and chronic osteomyelitis of left heel. Diabetes. Hypertension.. . 12/17/17. Acute and chronic osteomyelitis of left feels. Diabetes. Hypertension. Patient needs debridement of foot before wound VAC put on. . 12/18/17 osteomyelitis of left heel. Diabetes. Hypertension patient voicing no complaints Clinical Quality Measures DVT/VTE Risk/Contraindication: Risk Factor Score Per Nursin RFS Level Per Nursing on Admit: 4+=Very High ASHWIN DAS DO Dec 18, 2017 08:36
--- NOTE | 2017-12-18 09:19 | PM & R (SOAP) Progress Note ---
Subjective Time Seen by Provider: 08:10 Subjective/Events-last exam Patient was seen in his room today Patient Modified Independent for transfers. Patient to have debridement of wound with DR Yeh today and then have wound vac reapplied.Accucheks noted.Will check HGBA1C Objective Exam Last Set of Vital Signs Vital Signs Date Time Temp Pulse Resp B/P (MAP) Pulse Ox O2 Delivery O2 Flow Rate FiO2 12/18/17 06:04 98.6 60 16 118/74 (89) 99 Room Air Capillary Refill : I&O Intake and Output 12/18/17 00:00 Intake Total 2282 ml Balance 2282 ml Intake Oral 1890 ml IV Total 392 ml # Voids 6 # Bowel Movements 2 General: Alert, Oriented X3, Cooperative, No Acute Distress HEENT: Atraumatic, PERRLA, EOMI, Mucous Memb Moist/[place] Neck: Supple, No JVD Lungs: Clear to Auscultation Heart: Regular Rate Abdomen: Normal Bowel Sounds, Soft, No Tenderness Extremities: Other (Trace edema left foot wrapped with kerlex) Neuro: Other (Normal strength except left leg which is mildly impaired) Results Lab Laboratory Tests 12/15/17 21:51: Glucometer 259H 12/16/17 05:40: White Blood Count 6.8, Red Blood Count 4.17L, Hemoglobin 12.6L, Hematocrit 37L, Mean Corpuscular Volume 88, Mean Corpuscular Hemoglobin 30, Mean Corpuscular Hemoglobin Concent 34, Red Cell Distribution Width 13.8, Platelet Count 217, Mean Platelet Volume 9.8, Neutrophils (%) (Auto) 73, Lymphocytes (%) (Auto) 17, Monocytes (%) (Auto) 8, Eosinophils (%) (Auto) 2, Basophils (%) (Auto) 1, Neutrophils # (Auto) 4.9, Lymphocytes # (Auto) 1.2, Monocytes # (Auto) 0.5, Eosinophils # (Auto) 0.1, Basophils # (Auto) 0.0, Sodium Level 140, Potassium Level 4.0, Chloride Level 104, Carbon Dioxide Level 25, Anion Gap 11, Blood Urea Nitrogen 17, Creatinine 0.74, Estimat Glomerular Filtration Rate > 60, BUN/ Creatinine Ratio 23, Glucose Level 117H, Calcium Level 9.2, Total Bilirubin 0.6 , Aspartate Amino Transf (AST/SGOT) 19, Alanine Aminotransferase (ALT/SGPT) 18, Alkaline Phosphatase 78, Total Protein 7.0, Albumin 3.3, Triglycerides Level 177H, Cholesterol Level 146, LDL Cholesterol Direct 96, VLDL Cholesterol 35, HDL Cholesterol 24L 12/16/17 16:02: Glucometer 113H 12/17/17 05:12: Glucometer 90 12/17/17 16:08: Glucometer 141H 12/18/17 05:16: Glucometer 88 Assessment/Plan Assessment Acute on chronic osteomyelitis s/p debridement OSH and on IV antibiotics as per H&P and now with wound vac DM meds being adjusted HTN controlled with meds MIld attention deficit HLP Plan Continue PT/OT and wound care -Dr Yeh consulted re wound vac-done-to have debridement today May need to focus on W/C level of function due to Limited WBS LLE and need for wound vac-Will f/u with DR Yeh re this Team Conference held yesterday-See report for full functional update and POC and ELOS Check [id number] orders. KEDAR KUHN MD Dec 18, 2017 09:19
--- NOTE | 2017-12-18 12:59 | Physical Therapy Daily Note ---
PT Daily Note-Current Subjective Pt laying Supine in bed upon arrival. Pt agrees to PT. Pain Location: No Pain Reported Mental Status Patient Orientation: Person, Place, Time Transfers Functional [place] Measure 0=Not Assessed/NA 4=Minimal Assistance 1=Total Assistance 5=Supervision or Setup 2=Maximal Assistance 6=Modified [place] 3=Moderate Assistance 7=Complete IndependenceIRFPAI Quality Coding Scale 6 Independent with activity with or without an assistive device 5 Patient requires set up or clean up by helper. Patient completes activity by themselves 4 Supervision or touching assist (CGA). [place] provide cues , steadying assist 3 The helper provides less than half the effort to complete the activity 2 The helper provides more than half the effort to complete the activity 1 Dependent. The helper does all the effort to complete an activity 7 Patient refused to complete or attempt activity 9 The patient did not perform the activity before the current illness or injury 88 Not attempted due to Medical conditions or safety concerns Scootin Rollin Roll Left to Right (QC): 6 Supine to/from Sit: 6 Sit to/from Stand: 6 Sit to Lying (QC): 6 Sit to Stand (QC): 6 Weight Bearing Right Lower Extremity: Right Full Weight Bearing Left Lower Extremity: Left Touch Toe Bearing Patient is toe touch on the left but heel is not allowed to touch the floor. Gait Training Does the Patient Walk?: Yes Distance (FIM): 3=150 ft Distance: 300' Walk 10 feet (QC): 6 Walk 50 ft with 2 Turns(QC): 6 Walk 150 ft (QC): 6 Gait Level of Assist: 6 Gait Persons Needed: 1 Gait Assistive Device: FWW Pt maintains TTWB on LLE well. Pt has normalized gait and mari except having to keep L heel off floor during ambulation. Wheelchair Training Does the Pt Use a Wheelchair?: No Stair Training Stair Training: Handrails/: 2 handrails #of Steps: 20 1 Step (curb) (QC): 6 4 Steps (QC): 6 12 Steps (QC): 6 Stairs: Pattern: Reciprocal Level of Assist: 6 Exercises Supine Ex: Ankle pumps, Quad Set, Glut sets, Heel Slides, Straight leg raise, Hip abd/add Supine Reps: 15 Seated Therapy Exercises: Long arc quads, Hip flexion, Kicking activity Seated Reps: 15 Treatments Pt completes Supine Ex in bed then transfers to B at [facility] I. Pt completes Seated Ex at EOB then transfers to standing using FWW at Mod I. Pt ambulates in hallway using FWW at Mod I. Pt completes 5 sets of 4 stairs at Mod I. Pt rest shortly then ambulates back to room to rest Supine in bed at end of tx with all needs met. Assessment Current Status: Good Progress Pt is able to complete transfers and ambulation at Mod I. PT Short Term Goals Short Term Goals Time Frame: Dec 23, 2017 Transfers (B,C,W/C) (FIM): 6 Gait (FIM): 5 Gait Distance Comment: 500' Gait Level of Assist: 6 Gait Assistive Device: FWW PT Exerciser Horse Goals Skilled Nursing Goals PT Skilled Nursing Goals Time Frame: Jan 06, 2018 Transfers (B,C,W/C) (FIM): 6 Sit to Lying (QC): 6 Lying-Sitting on Side/Bed(QC): 6 Sit to Stand (QC): 6 Rollin Roll Left to Right (QC): 6 Chair/Qbw-nn-Zlctd Xfer(QC): 6 Car Transfer (QC): 6 Does the Patient Walk: Yes Gait (FIM): 6 Distance: 800' Walk 10 feet (QC): 6 Walk 10ft-Uneven Surface(QC): 6 Walk 50ft with 2 Turns (QC): 6 Walk 150 ft (QC): 6 Gait Level of Assist: 6 Gait Assistive Device: FWW Does the Pt use WC or Scooter?: No Stairs (FIM): 6 # of Steps: 12 1 Step (curb) (QC): 6 4 Steps (QC): 6 12 Steps (QC): 6 Stairs Level Of Assist: 6 Picking up an Object (QC): 6 PT Plan Problem List Problem List: Activity Tolerance, Gait Treatment/Plan Treatment Plan: Continue Plan of Care Treatment Plan: Bed Mobility, Education, Functional Activity My, Functional Strength, Group Therapy, Gait, Safety, Therapeutic Exercise, Transfers Treatment Duration: Jan 06, 2018 Frequency: At least 5 of 7 days/Wk (IRF) Estimated Hrs Per Day: 1.5 hours per day Patient and/or Family Agrees t: Yes Safety Risks/Education Patient Education: Gait Training, Correct Positioning, Disease Process Teaching Recipient: Patient Teaching Methods: Discussion Response to Teaching: Verbalize Understanding Time/GCodes Time In: 900 Time Out: 1000 Total Billed Treatment Time: 60 Total Billed Treatment 1, FA (15m), EX x2 (30m) & GT (15m) YOHANA CARABALLO POWER TRANSFORMER REPAIRER Dec 18, 2017 12:59
--- NOTE | 2017-12-18 13:20 | Individualized Plan of Care ---
Individualized Plan of Care Rehab Nursing IPOC Order Admission Date Dec 15, 2017 at 19:00 Current Orders Orders Cho 60g/M 1snack (16-2000 Kin) (12/15/17 Dinner) Amlodipine Tablet (Norvasc Tablet) (12/16/17 09:00) Ampicillin/Sulbactam Injection (Unasyn 3 (12/16/17 00:00) Hydrocodone/Apap 5/325 Tablet (Lortab 5 (12/15/17 20:45) Lactobacillus/Bulgaricus Tab (Lactinex (12/16/17 09:00) Lisinopril Tablet (Zestril Tablet) (12/16/17 09:00) Metformin Tablet (Glucophage Tablet) (12/16/17 07:00) Admission-Acute Rehab Unit (12/15/17 20:52) Vital Signs: Routine 08,16,00 (12/15/17 20:52) Surgical Instruments Inspector-Inpt Rehab (12/15/17 20:52) Rehab Nursing Orders-Ipoc (12/15/17 20:52) Physical Therapy Rehab Orders (12/15/17 20:52) Occupational Therapy Rehab Ord (12/15/17 20:52) Speech Therapy Rehab Orders (12/15/17 20:52) Turn And Reposition Q2HR (12/15/17 20:52) Intake & Output 06,14,22 (12/15/17 20:52) Weight Bearing Status (12/15/17 20:52) Precautions (Aru) (12/15/17 20:52) Weekly Weight (Lbs) WEEK (12/15/17 20:52) Cbc With Automated Diff (12/16/17 06:00) Comprehensive Metabolic Panel (12/16/17 06:00) Accucheck Bid DBID (12/15/17 20:57) Consult Physician (12/15/17 20:58) Senna S Tablet (Senokot S Tablet) (12/15/17 21:00) Magnesium Hydroxide Oral Susp (Mom Oral (12/15/17 21:00) Metformin Tablet (Glucophage Tablet) (12/15/17 21:48) Ampicillin/Sulbactam Injection (Unasyn 3 (12/16/17 00:07) Ns (Ivpb) (Sodium Chloride 0.9% Ivpb Bag (12/16/17 00:13) Ampicillin/Sulbactam Injection (Unasyn 3 (12/16/17 01:07) Ambulate TID (12/16/17 09:00) Ns (Ivpb) (Sodium Chloride 0.9% Ivpb Bag (12/16/17 05:27) Influenza Trivalent [id number] (Afluria (12/16/17 07:00) Lipid Panel (12/16/17 08:08) Consult Physician (12/16/17 09:27) Dietary Consult (12/16/17 09:27) [facility] Diabetes Teaching Record .prn (12/16/17 09:27) Diabetes Education (12/16/17 09:27) [facility] Diabetes Teaching Record .prn (12/16/17 09:27) Patient Visit (12/16/17 ) Speech Sound Lang Comp (12/16/17 ) Patient Visit (12/16/17 ) Pt Eval Moderate Complexity (12/16/17 ) Ex Neuromuscular, Ea 15 Min (12/16/17 ) Exercise Therap, Ea 15 Min (12/16/17 ) Advanced Wound Care Dressing O BID PRN (12/16/17 19:45) Sodium Hypochlorite 0.125% Carly (Dakin's (12/16/17 19:45) Patient Visit (12/17/17 ) Exercise Therap, Ea 15 Min (12/17/17 ) Gait Training, Ea 15 Min (12/17/17 ) Functional Activities, Ea 15 (12/17/17 ) Therapeutic, Group (12/17/17 ) Consent-Obtain Consent For UD (12/17/17 20:43) Hemoglobin A1c (12/18/17 09:20) Patient Visit (12/18/17 ) Functional Activities, Ea 15 (12/18/17 ) Exercise Therap, Ea 15 Min (12/18/17 ) Gait Training, Ea 15 Min (12/18/17 ) Rehab Nursing Orders: Diseage Management, Edu in Press Rel Techn, Hydration Management, Nutrition Management, Pain Management Other Nursing Orders: Monitor for postop urinary retention and constipation wound care PT IPOC Problem List: Activity Tolerance, Gait Treatment Plan: Continue Plan of Care Bed Mobility, Education, Functional Activity My, Functional Strength, Group Therapy, Gait, Safety, Therapeutic Exercise, Transfers Treatment Duration: Jan 06, 2018 Frequency: At least 5 of 7 days/Wk (IRF) Estimated Hrs Per Day: 1.5 hours per day OT IPOC Problems: Decreased UE Strength, Dependent Transfers, Impaired Funct Balance, Impaired Self-Care Skills OT Treatment, Training and Edu: Yes Plan of Care: ADL Retraining, Functional Mobility, Group Exercise/Act as Ind, UE Funct Exercise/Act Treatment Duration: Jan 06, 2018 Frequency: At least 5 of 7 days/Wk (IRF) Estimated Hrs Per Day: 1.[address] IPOC Speech Therapy Treatment Plan: Discontinue ST Treatment Duration: Dec 18, 2017 Frequency: Modified Program (IRF) Estimated Hrs Per Day: Other Surgical Instruments Inspector/Case Mgmt Surgical Instruments Inspector/Case Managemen: Discharge Planning, Patient/Family Counseling Physician IPOC Medical Issues being managed closely and that require the 24 hour availability of a physician: DM2 Wound care pain management HTN Medical Issues: Bowel/Bladder Function, Falls Precautions, Fluid/Electrolyte/ Nutrition Balance, Infection Protection, Pain Management, Weight Bearing Precautions, Wound Care, Other (List) (as per above) Brief Synthesis of Preadmission Screen, Post-Admission Evaluation, and Therapy Evaluations: 47 yo male who developed osteomyelitis fro diabetic foot ulcer left heel s/p debridement at OSH Referred her for ongoing wound care and Wound vac and therapies and IV antibiotics prior to discharge to home with family.Patient has newly diagnosed DM.Patient had been Independent prior to this and working.Patient TTWB on Left [facility] code 08.9 Etiologic DX Osteomyelitis left foot Medical Prognosis: Good Anticipated Length of Stay: 12-26-17 Rehab Goals Modified Independent for adls and mobility skills at the W/C level due to TTWB LLE Anticipated discharge destinat: Home with family with [facility] KEDAR KUHN MD Dec 18, 2017 13:20
--- NOTE | 2017-12-18 14:46 | Occupational Ther Daily Note ---
OT Current Status-Daily Note Subjective No pain reported. Appearance Pt. up on side of bed. Mental Status/Objective Patient Orientation: Person, Place, Time Functional [place] Measure 0=Not Assessed/NA 4=Minimal Assistance 1=Total Assistance 5=Supervision or Setup 2=Maximal Assistance 6=Modified [place] 3=Moderate Assistance 7=Complete [place] ADL-Treatment Functional [place] Measure 0=Not Assessed/NA 4=Minimal Assistance 1=Total Assistance 5=Supervision or Setup 2=Maximal Assistance 6=Modified [place] 3=Moderate Assistance 7=Complete IndependenceIRFPAI Quality Coding Scale 6 Independent with activity with or without an assistive device 5 Patient requires set up or clean up by helper. Patient completes activity by themselves 4 Supervision or touching assist (CGA). [place] provide cues , steadying assist 3 The helper provides less than half the effort to complete the activity 2 The helper provides more than half the effort to complete the activity 1 Dependent. The helper does all the effort to complete an activity 7 Patient refused to complete or attempt activity 9 The patient did not perform the activity before the current illness or injury 88 Not attempted due to Medical conditions or safety concerns Bathing (FIM): 5 (Pt. is able to completely bathe self in shower with set up of sponge bath.) Shower/Bathe Self (QC): 5 Upper Body (FIM): 5 Upper Body Dressing (QC): 5 Lower Body Dressing (FIM): 5 Lower Body Dressing (QC): 5 On/Off Footwear (QC): 5 (Pt. is apprehensive about donning his own slipper socks, but is able to do this on his own.) Transfers (B, C, W/C) (FIM): 6 (Pt. is able to ambulate around therapy area with walker with mod I.) Other Treatment Pt. declines showering, but requests to spongebathe in shower. OT sets up spongebath, and pt. transfers into shower with spongebath. Able to bathe and dress with set up. After ADLs, pt. ambulated around therapy area/dining room with Mod I. No loss of balance noted. Pt. then ambulated to therapy gym and completed armbike x 15 minutes at mod resistance for increased overall strengthening. Tolerated this well. Pt. then donned 1 lb. wrist weights and completed therapy peg activity with alternating arms and putting pegs in. Tolerated treatment. Ambulated back to room with all needs met. Education OT Patient Education: Correct positioning, Exercise program, Modified ADL techniques, Progress toward Goal/Update tx plan, Purpose of tx/functional activities, Reviewed precautions, Rehab process, Transfer techniques Teaching Recipient: Patient Teaching Methods: Demonstration, Discussion Response to Teaching: Verbalize Understanding, Return Demonstration OT Short Term Goals Short Term Goals Transfers (B,C,W/C) (FIM): 6 1=Demonstrate adherence to instructed precautions during ADL tasks. 2=Patient will verbalize/demonstrate understanding of assistive devices/ modifications for ADL. 3=Patient will improve strength/tolerance for activity to enable patient to perform ADL's. OT Rush Seater Goals Fpc Goals Time Frame: Jan 06, 2018 Eating (FIM): 7 Eating (QC): 6 Groomin Oral Hygiene (QC): 6 Bathing(FIM): 6 Shower/Bathe Self (QC): 6 Upper Body Dressing(FIM): 6 Upper Body Dressing (QC): 6 Lower Body Dressing(FIM): 6 Lower Body Dressing (QC): 6 On/Off Footwear (QC): 6 Toileting(FIM): 6 Toileting Hygiene (QC): 6 Toilet/Commode Transfer(FIM): 6 Toilet/Commode Transfer (QC): 6 Shower Transfer(FIM): 6 (If cleared to shower) Additional Goals: 2-Verbalize Understanding, 3-ImproveStrength/My 1=Demonstrate adherence to instructed precautions during ADL tasks. 2=Patient will verbalize/demonstrate understanding of assistive devices/ modifications for ADL. 3=Patient will improve strength/tolerance for activity to enable patient to perform ADL's. OT Education/Plan Problem List/Assessment Assessment: Decreased Activ Tolerance Discharge Recommendations Plan/Recommendations: Continue POC Therapy D/C Recommendations: Home Independently Treatment Plan/Plan of Care Treatment,Training & Education: Yes Patient would benefit from OT for education, treatment and training to promote independence in ADL's, mobility, safety and/or upper extremity function for ADL' s. Plan of Care: ADL Retraining, Functional Mobility, Group Exercise/Act as Ind, UE Funct Exercise/Act Treatment Duration: Jan 06, 2018 Frequency: At least 5 of 7 days/Wk (IRF) Estimated Hrs Per Day: 1.5 hours per day Agreement: Yes Rehab Potential: Fair Time/GCodes Start Time: 10:15 Stop Time: 11:45 Total Time Billed (hr/min): 90 Billed Treatment Time 1, ADL x 30minutes, FA x 45minutes, ex x 15minutes EKTA EAST OT Dec 18, 2017 14:46
--- NOTE | 2017-12-18 16:10 | Physical Therapy Daily Note ---
PT Daily Note-Current Subjective Pt laying Supine in bed upon arrival. Pt agrees to PT. Pain Location: No Pain Reported Mental Status Patient Orientation: Person, Place, Time, Situation Transfers Functional [place] Measure 0=Not Assessed/NA 4=Minimal Assistance 1=Total Assistance 5=Supervision or Setup 2=Maximal Assistance 6=Modified [place] 3=Moderate Assistance 7=Complete IndependenceIRFPAI Quality Coding Scale 6 Independent with activity with or without an assistive device 5 Patient requires set up or clean up by helper. Patient completes activity by themselves 4 Supervision or touching assist (CGA). [place] provide cues , steadying assist 3 The helper provides less than half the effort to complete the activity 2 The helper provides more than half the effort to complete the activity 1 Dependent. The helper does all the effort to complete an activity 7 Patient refused to complete or attempt activity 9 The patient did not perform the activity before the current illness or injury 88 Not attempted due to Medical conditions or safety concerns Scootin Rollin Roll Left to Right (QC): 6 Supine to/from Sit: 6 Sit to/from Stand: 6 Sit to Lying (QC): 6 Sit to Stand (QC): 6 Weight Bearing Right Lower Extremity: Right Full Weight Bearing Left Lower Extremity: Left Touch Toe Bearing Patient is toe touch on the left but heel is not allowed to touch the floor. Gait Training Does the Patient Walk?: Yes Distance (FIM): 3=150 ft Distance: 500' Walk 10 feet (QC): 6 Walk 50 ft with 2 Turns(QC): 6 Walk 150 ft (QC): 6 Gait Level of Assist: 6 Gait Persons Needed: 1 Gait Assistive Device: FWW Pt walks at TTWB at [facility] with otherwise normalized gait pattern. Wheelchair Training Does the Pt Use a Wheelchair?: No Treatments Pt transfers from Supine to EOB to Standing using FWW at [facility]. Pt ambulates in hallway using FWW at [facility]. Pt returns to room at end of tx to rest Supine in bed with all needs met. Assessment Current Status: Good Progress Pt able to complete transfers and ambulation at [facility]. PT Short Term Goals Short Term Goals Time Frame: Dec 23, 2017 Transfers (B,C,W/C) (FIM): 6 Gait (FIM): 5 Gait Distance Comment: 500' Gait Level of Assist: 6 Gait Assistive Device: FWW PT Intermediate Goals Outboard Motorboat Rigger Goals PT Outboard Motorboat Rigger Goals Time Frame: Jan 06, 2018 Transfers (B,C,W/C) (FIM): 6 Sit to Lying (QC): 6 Lying-Sitting on Side/Bed(QC): 6 Sit to Stand (QC): 6 Rollin Roll Left to Right (QC): 6 Chair/Nxl-el-Seoim Xfer(QC): 6 Car Transfer (QC): 6 Does the Patient Walk: Yes Gait (FIM): 6 Distance: 800' Walk 10 feet (QC): 6 Walk 10ft-Uneven Surface(QC): 6 Walk 50ft with 2 Turns (QC): 6 Walk 150 ft (QC): 6 Gait Level of Assist: 6 Gait Assistive Device: FWW Does the Pt use WC or Scooter?: No Stairs (FIM): 6 # of Steps: 12 1 Step (curb) (QC): 6 4 Steps (QC): 6 12 Steps (QC): 6 Stairs Level Of Assist: 6 Picking up an Object (QC): 6 PT Plan Problem List Problem List: Gait Treatment/Plan Treatment Plan: Continue Plan of Care Treatment Plan: Bed Mobility, Education, Functional Activity My, Functional Strength, Group Therapy, Gait, Safety, Therapeutic Exercise, Transfers Treatment Duration: Jan 06, 2018 Frequency: At least 5 of 7 days/Wk (IRF) Estimated Hrs Per Day: 1.5 hours per day Patient and/or Family Agrees t: Yes Safety Risks/Education Patient Education: Gait Training, Correct Positioning, Safety Issues Teaching Recipient: Patient Teaching Methods: Discussion Response to Teaching: Verbalize Understanding Time/GCodes Time In: 1330 Time Out: 1400 Total Billed Treatment Time: 30 Total Billed Treatment 1, GT x2 (30m) YOHANA CARABALLO DRIVER SALESMAN Dec 18, 2017 16:10
--- NOTE | 2017-12-18 18:29 | Wound Care Progress Note ---
Subjective Subjective Subjective/Events-last exam 47 year old male with Chaudhry Grade 4 diabetic foot ulcer, s/p extensive debridement of calcaneus and overlying gangrene of L heel. The wound shows significant necrotic tissue. Debridement, procedure, risks and benefits have been discussed in detail, understood and accepted by patient. The patient desires to use NPWT to speed wound healing. Review of Systems Date Seen by Provider: Dec 18, 2017 Time Seen by Provider: 18:21 General: No Chills Pulmonary: No Dyspnea Cardiovascular: No: Chest Pain Objective Exam Last Set of Vital Signs Vital Signs Date Time Temp Pulse Resp B/P (MAP) Pulse Ox O2 Delivery O2 Flow Rate FiO2 12/18/17 09:00 Room Air 12/18/17 06:04 98.6 60 16 118/74 (89) 99 Capillary Refill : I&O Intake and Output 12/17/17 23:59 Intake Total 2282 ml Balance 2282 ml Intake Oral 1890 ml IV Total 392 ml # Voids 6 # Bowel Movements 2 Results Lab Laboratory Tests 12/18/17 05:16: Glucometer 88 12/18/17 12:05: 12/18/17 15:59: Glucometer 103 Procedures Procedures L heel wound --- following appropriate time out process, the L heel area was painted with Betadine solution, and anesthetized with topical 20% benzocaine spray. Excisional debridement was carried out using a curette, removing skin, subcutaneous tissue, slough, eschar, ligament and tendon. The patient tolerated the procedure well, with minimal pain both during and after the procedure. The deepest level of tissue removed was tendon. Minimal bleeding was controlled with pressure. A dry gauze pressure dressing was applied. No tissue was obtained for culture as the patient is on IV antibiotics. JESUS ALLEN MD Dec 18, 2017 18:28
[2017-12-18 19:30] VITALS: BP 131/75
[2017-12-19] MEDS: AMPICILLIN/SULBACTAM INJECTION 3 GM in NS (IVPB) 100 ML IV SCH ×4 (00:33→18:21)
[2017-12-19] MEDS: metFORMIN 500 MG (GLUCOPHAGE) TAB PO SCH ×2 (05:48→18:21)
[2017-12-19 06:43] VITALS: BP 117/78
[2017-12-19] MEDS: lisINopril 20 MG (ZESTRIL) TAB PO SCH (08:10)
[2017-12-19] MEDS: amLODIPine 5 MG (NORVASC) TAB PO SCH (08:10)
[2017-12-19] MEDS: SENNA W/DOCUSATE (SENOKOT S) TABLET PO SCH ×2 (08:10→21:11)
[2017-12-19] MEDS: LACTOBACILLUS Acidoph/Bulgar (LACTINEX/FLORANEX) TAB PO SCH ×2 (08:10→21:11)
--- NOTE | 2017-12-19 08:11 | Progress Note (SOAP) ---
Subjective Time Seen by Provider: 08:10 Subjective/Events-last exam patient had debridement yesterday have wound area Patient to get wound care today. Patient's blood pressure good. Patient sugars are good. Patient seems happy Objective Exam Vital Signs Date Time Temp Pulse Resp B/P (MAP) Pulse Ox O2 Delivery O2 Flow Rate FiO2 12/19/17 06:43 98.9 66 16 117/78 (91) 99 Room Air 12/18/17 20:30 Room Air 12/18/17 19:30 96.1 79 16 131/75 (93) 99 Room Air 12/18/17 09:00 Room Air I & O 12/19/17 06:59 Intake Total 1420 ml Balance 1420 ml Capillary Refill : General Appearance: No Apparent Distress, WD/WN Results Lab Laboratory Tests 12/18/17 12:05: Mean Blood Glucose 200H, Hemoglobin A1c 8.6H 12/18/17 15:59: Glucometer 103 12/19/17 05:25: Glucometer 88 Assessment/Plan Assessment/Plan Assess & Plan/Chief Complaint acute and chronic osteomyelitis of left heel. Diabetes. Hypertension.. . 12/17/17. Acute and chronic osteomyelitis of left feels. Diabetes. Hypertension. Patient needs debridement of foot before wound VAC put on. . 12/18/17 osteomyelitis of left heel. Diabetes. Hypertension patient voicing no complaints . 12/19/17. osteomyelitis of left heel. Diabetes. Hypertension. Under control. Patient seems happy Clinical Quality Measures DVT/VTE Risk/Contraindication: Risk Factor Score Per Nursin RFS Level Per Nursing on Admit: 4+=Very High ASHWIN DAS DO Dec 19, 2017 08:11
--- NOTE | 2017-12-19 08:51 | PM & R (SOAP) Progress Note ---
Subjective Time Seen by Provider: 08:15 Subjective/Events-last exam Patient was seen in his room this AM Patient Modified Independent for transfers.Appreciate Dr Kim note from last evening Patient had debridement last evening Wound vac now to be applied. Objective Exam Last Set of Vital Signs Vital Signs Date Time Temp Pulse Resp B/P (MAP) Pulse Ox O2 Delivery O2 Flow Rate FiO2 12/19/17 06:43 98.9 66 16 117/78 (91) 99 Room Air Capillary Refill : I&O Intake and Output 12/19/17 00:00 Intake Total 2220 ml Balance 2220 ml Intake Oral 1920 ml IV Total 300 ml # Voids 7 General: Alert, Oriented X3, Cooperative, No Acute Distress HEENT: Atraumatic, PERRLA, EOMI, Mucous Memb Moist/[place] Neck: Supple, No JVD Lungs: Clear to Auscultation Heart: Regular Rate Abdomen: Normal Bowel Sounds, Soft, No Tenderness Extremities: Other (Trace edema left foot wrapped with kerlex) Neuro: Other (Normal strength except left leg which is mildly impaired) Results Lab Laboratory Tests 12/16/17 16:02: Glucometer 113H 12/17/17 05:12: Glucometer 90 12/17/17 16:08: Glucometer 141H 12/18/17 05:16: Glucometer 88 12/18/17 12:05: Mean Blood Glucose 200H, Hemoglobin A1c 8.6H 12/18/17 15:59: Glucometer 103 12/19/17 05:25: Glucometer 88 Assessment/Plan Assessment Acute on chronic osteomyelitis s/p debridement OSH and on IV antibiotics as per H&P and now s/p debridement here DR Yeh 12/18/17 awaiting Wound vac application. DM meds being adjusted-HGBA1C 8.6 HTN controlled with meds MIld attention deficit HLP Plan Continue PT/OT and wound care -Dr Yeh consulted and following May need to focus on W/C level of function due to Limited WBS LLE and need for wound vac-Will f/u with DR Yeh re this Team Conference held 11-19-17-See report for full functional update and POC and ELOS Discharge set tentatively for next week to home with family with ongoing IV antibiotics and wound care on an outpatient basis. KEDAR KUHN MD Dec 19, 2017 08:51
--- NOTE | 2017-12-19 12:04 | Physical Therapy Daily Note ---
PT Daily Note-Current Subjective Pt. states he feels he is doing everything he is suppose to and has better FSBS results etc. No pain in foot/heel Pain Numeric Pain Scale: 0-No Pain Mental Status Patient Orientation: Person, Place, Time, Situation Attachments: Other-See Comments (heel protection soft boot left) Transfers Functional [place] Measure 0=Not Assessed/NA 4=Minimal Assistance 1=Total Assistance 5=Supervision or Setup 2=Maximal Assistance 6=Modified [place] 3=Moderate Assistance 7=Complete IndependenceIRFPAI Quality Coding Scale 6 Independent with activity with or without an assistive device 5 Patient requires set up or clean up by helper. Patient completes activity by themselves 4 Supervision or touching assist (CGA). [place] provide cues , steadying assist 3 The helper provides less than half the effort to complete the activity 2 The helper provides more than half the effort to complete the activity 1 Dependent. The helper does all the effort to complete an activity 7 Patient refused to complete or attempt activity 9 The patient did not perform the activity before the current illness or injury 88 Not attempted due to Medical conditions or safety concerns Transfers (B, C, W/C) (FIM): 6 Scootin Rollin Supine to/from Sit: 6 Sit to/from Stand: 6 Bed to/from Chair: 6 Weight Bearing Right Lower Extremity: Right Full Weight Bearing Left Lower Extremity: Left Touch Toe Bearing Patient is toe touch on the left but heel is not allowed to touch the floor. Gait Training Does the Patient Walk?: Yes Gait (FIM): 5 Distance (FIM): 3=150 ft (250x2) Gait Level of Assist: 5 Gait Persons Needed: 1 Gait Assistive Device: FWW Stair Training Stair Training: Handrails/: 2 handrails Stairs (FIM): 5 #of Steps: 12 Stairs: Pattern: Step to Level of Assist: 5 needs many cues for proper sequence Exercises Supine Ex: Bridging, Ankle pumps, Quad Set, Rolling, Glut sets, Heel Slides, Short Arc Quads, Scooting, Straight leg raise, Hip abd/add Supine Reps: 15 Standing: Hip Abduction, Hamstring curls, Heel/toe raises, Marching, Mini squats, Sit to Stand Standing Reps: 15 (standing exercises with LLE only) NuStep Minutes: 10 NuStep Workload: 4 Treatments nustep with RLE only Assessment Current Status: Good Progress pt. with some LD challenges needs many cues for safety and technique. states today " I think I'll hire a FT nurse for home" PT Short Term Goals Short Term Goals Time Frame: Dec 23, 2017 Transfers (B,C,W/C) (FIM): 6 Gait (FIM): 5 Gait Distance Comment: 500' Gait Level of Assist: 6 Gait Assistive Device: FWW PT Various Exceptionalities Teacher Goals Various Exceptionalities Teacher Goals PT Long-Term Goals Time Frame: Jan 06, 2018 Transfers (B,C,W/C) (FIM): 6 Sit to Lying (QC): 6 Lying-Sitting on Side/Bed(QC): 6 Sit to Stand (QC): 6 Rollin Roll Left to Right (QC): 6 Chair/Zla-fc-Ugydk Xfer(QC): 6 Car Transfer (QC): 6 Does the Patient Walk: Yes Gait (FIM): 6 Distance: 800' Walk 10 feet (QC): 6 Walk 10ft-Uneven Surface(QC): 6 Walk 50ft with 2 Turns (QC): 6 Walk 150 ft (QC): 6 Gait Level of Assist: 6 Gait Assistive Device: FWW Does the Pt use WC or Scooter?: No Stairs (FIM): 6 # of Steps: 12 1 Step (curb) (QC): 6 4 Steps (QC): 6 12 Steps (QC): 6 Stairs Level Of Assist: 6 Picking up an Object (QC): 6 PT Plan Treatment/Plan Treatment Plan: Continue Plan of Care Treatment Plan: Bed Mobility, Education, Functional Activity My, Functional Strength, Group Therapy, Gait, Safety, Therapeutic Exercise, Transfers Treatment Duration: Jan 06, 2018 Frequency: At least 5 of 7 days/Wk (IRF) Estimated Hrs Per Day: 1.5 hours per day Patient and/or Family Agrees t: Yes Safety Risks/Education Patient Education: Gait Training, Transfer Techniques, Steps, Correct Positioning, Safety Issues Teaching Recipient: Patient Teaching Methods: Demonstration, Discussion Response to Teaching: Verbalize Understanding, Return Demonstration, Reinforcement Needed Time/GCodes Time In: 1100 Time Out: 1200 Total Billed Treatment Time: 60 Total Billed Treatment 1,GT20m,FA15m,EX25m G Codes Necessary: No BAMBI PEDROZA CURRICULUM ASSISTANT Dec 19, 2017 12:04
--- NOTE | 2017-12-19 13:02 | Occupational Ther Daily Note ---
OT Current Status-Daily Note Subjective Pt in bed, agrees to treatment. Mental Status/Objective Functional [place] Measure 0=Not Assessed/NA 4=Minimal Assistance 1=Total Assistance 5=Supervision or Setup 2=Maximal Assistance 6=Modified [place] 3=Moderate Assistance 7=Complete [place] ADL-Treatment Pt declined bathing or changing clothes at this time, would like to complete grooming. Pt supine to sit with modified independence. Pt donned right shoe without assistance. Sit to stand with modified independence. Gait to restroom with FWW, TTWB left LE. Pt completed grooming tasks while standing at sink. Pt brushed teeth, combed hair, and washed face with modified independence. Able to maintain WB status. Functional [place] Measure 0=Not Assessed/NA 4=Minimal Assistance 1=Total Assistance 5=Supervision or Setup 2=Maximal Assistance 6=Modified [place] 3=Moderate Assistance 7=Complete IndependenceIRFPAI Quality Coding Scale 6 Independent with activity with or without an assistive device 5 Patient requires set up or clean up by helper. Patient completes activity by themselves 4 Supervision or touching assist (CGA). [place] provide cues , steadying assist 3 The helper provides less than half the effort to complete the activity 2 The helper provides more than half the effort to complete the activity 1 Dependent. The helper does all the effort to complete an activity 7 Patient refused to complete or attempt activity 9 The patient did not perform the activity before the current illness or injury 88 Not attempted due to Medical conditions or safety concerns Grooming (FIM): 6 Oral Hygiene (QC): 6 Other Treatment Gait to therapy gym with FWW, TTWB left LE. Arm bike [id number] to increase overall strength and activity tolerance needed for functional tasks. Pt completed task with 25watts resistance and steady pace. One brief rest break taken during task. Pt completed bilateral UE exercises to increase strength for ADLs and transfers. Pt performed shoulder flexion, abduction, biceps curls, triceps extension, and wrist flex/ext x15 reps with 3# weights. Brief rest breaks between exercises. Pt completed fine motor task with nuts and bolts with 2# weights in place to increase strength and coordination skills. Pt returned to room, resting in bed with needs met after session. OT Short Term Goals Short Term Goals Transfers (B,C,W/C) (FIM): 6 1=Demonstrate adherence to instructed precautions during ADL tasks. 2=Patient will verbalize/demonstrate understanding of assistive devices/ modifications for ADL. 3=Patient will improve strength/tolerance for activity to enable patient to perform ADL's. OT Retirement Goals Dinkey Operator Slag Goals Time Frame: Jan 06, 2018 Eating (FIM): 7 Eating (QC): 6 Groomin Oral Hygiene (QC): 6 Bathing(FIM): 6 Shower/Bathe Self (QC): 6 Upper Body Dressing(FIM): 6 Upper Body Dressing (QC): 6 Lower Body Dressing(FIM): 6 Lower Body Dressing (QC): 6 On/Off Footwear (QC): 6 Toileting(FIM): 6 Toileting Hygiene (QC): 6 Toilet/Commode Transfer(FIM): 6 Toilet/Commode Transfer (QC): 6 Shower Transfer(FIM): 6 (If cleared to shower) Additional Goals: 2-Verbalize Understanding, 3-ImproveStrength/My 1=Demonstrate adherence to instructed precautions during ADL tasks. 2=Patient will verbalize/demonstrate understanding of assistive devices/ modifications for ADL. 3=Patient will improve strength/tolerance for activity to enable patient to perform ADL's. OT Education/Plan Discharge Recommendations Plan/Recommendations: Continue POC Treatment Plan/Plan of Care Patient would benefit from OT for education, treatment and training to promote independence in ADL's, mobility, safety and/or upper extremity function for ADL' s. Plan of Care: ADL Retraining, Functional Mobility, Group Exercise/Act as Ind, UE Funct Exercise/Act Treatment Duration: Jan 06, 2018 Frequency: At least 5 of 7 days/Wk (IRF) Estimated Hrs Per Day: 1.5 hours per day Agreement: Yes Rehab Potential: Fair Time/GCodes Start Time: 09:00 Stop Time: 10:00 Total Time Billed (hr/min): 60 Billed Treatment Time 1 visit, ADL(15minutes), EXx3(45minutes) CHANCE JIMENEZ OT Dec 19, 2017 13:02
--- NOTE | 2017-12-19 15:44 | Therapy Group Daily Note ---
Therapy Daily Group Note Patient Education Topic Other List Below (Flu prevention, FWW and w/c use) Exercises LE Seated Exercise, UE Exercise Other/Notes Pt ambulated to therapy gym with FWW for OT/PT group. Pt able to maintain TTWB left LE during gait. Assist required to manage wound vac. Pt participated in group introductions by providing name, place of residence, and favorite boy/ girl name. Education was provided regarding use of FWW and w/c for mobility. Group education also included flu prevention. Pt participated in UE/LE exercises while seated. Pt verbalized understanding of education that was provided and participated in group discussion. Pt participated in home safety trivia and problem solving activity. After group pt requested to ambulate around rehab unit. Pt able to ambulate with FWW, TTWB left LE. Pt requests to sit on toilet after session. Call light in reach. RN notified of pt's disposition. Start Time: 13:00 Stop Time: 14:30 Total Billed Treatment Time: 90 Total Billed Treatment 1 visit, GRP(90minutes) CHANCE JIMENEZ OT Dec 19, 2017 15:44
[2017-12-19 18:00] VITALS: BP 124/73
[2017-12-20] MEDS: AMPICILLIN/SULBACTAM INJECTION 3 GM in NS (IVPB) 100 ML IV SCH ×5 (00:30→23:25)
[2017-12-20 05:23] VITALS: BP 109/68
[2017-12-20] MEDS: metFORMIN 500 MG (GLUCOPHAGE) TAB PO SCH ×2 (06:09→17:28)
--- NOTE | 2017-12-20 09:07 | Occupational Ther Daily Note ---
OT Current Status-Daily Note Subjective Pt sleeping in bed, woke easily to name. Pt agreed to therapy. No c/o pain. Pt was asking about how to monitor carbohydrate intake. Mental Status/Objective Functional [place] Measure 0=Not Assessed/NA 4=Minimal Assistance 1=Total Assistance 5=Supervision or Setup 2=Maximal Assistance 6=Modified [place] 3=Moderate Assistance 7=Complete [place] ADL-Treatment Functional [place] Measure 0=Not Assessed/NA 4=Minimal Assistance 1=Total Assistance 5=Supervision or Setup 2=Maximal Assistance 6=Modified [place] 3=Moderate Assistance 7=Complete IndependenceIRFPAI Quality Coding Scale 6 Independent with activity with or without an assistive device 5 Patient requires set up or clean up by helper. Patient completes activity by themselves 4 Supervision or touching assist (CGA). [place] provide cues , steadying assist 3 The helper provides less than half the effort to complete the activity 2 The helper provides more than half the effort to complete the activity 1 Dependent. The helper does all the effort to complete an activity 7 Patient refused to complete or attempt activity 9 The patient did not perform the activity before the current illness or injury 88 Not attempted due to Medical conditions or safety concerns Other Treatment Pt completed 5 UE medium resistance theraband exercises. Pt completed well though required verbal cues to slow down use resistance to increase strength and activity tolerance. Pt completed 30 reps of each with recovery breaks between exercises. Theraband left with pt, recommendations of completing exercises when not in therapy. After therapy, pt lying in bed with call light/ phone in reach. All needs met in room. Education OT Patient Education: Exercise program Teaching Recipient: Patient Teaching Methods: Demonstration, Discussion Response to Teaching: Return Demonstration OT Short Term Goals Short Term Goals Transfers (B,C,W/C) (FIM): 6 1=Demonstrate adherence to instructed precautions during ADL tasks. 2=Patient will verbalize/demonstrate understanding of assistive devices/ modifications for ADL. 3=Patient will improve strength/tolerance for activity to enable patient to perform ADL's. OT Compliance Attorney Goals Compliance Attorney Goals Time Frame: Jan 06, 2018 Eating (FIM): 7 Eating (QC): 6 Groomin Oral Hygiene (QC): 6 Bathing(FIM): 6 Shower/Bathe Self (QC): 6 Upper Body Dressing(FIM): 6 Upper Body Dressing (QC): 6 Lower Body Dressing(FIM): 6 Lower Body Dressing (QC): 6 On/Off Footwear (QC): 6 Toileting(FIM): 6 Toileting Hygiene (QC): 6 Toilet/Commode Transfer(FIM): 6 Toilet/Commode Transfer (QC): 6 Shower Transfer(FIM): 6 (If cleared to shower) Additional Goals: 2-Verbalize Understanding, 3-ImproveStrength/My 1=Demonstrate adherence to instructed precautions during ADL tasks. 2=Patient will verbalize/demonstrate understanding of assistive devices/ modifications for ADL. 3=Patient will improve strength/tolerance for activity to enable patient to perform ADL's. OT Education/Plan Discharge Recommendations Plan/Recommendations: Continue POC Treatment Plan/Plan of Care Patient would benefit from OT for education, treatment and training to promote independence in ADL's, mobility, safety and/or upper extremity function for ADL' s. Plan of Care: ADL Retraining, Functional Mobility, Group Exercise/Act as Ind, UE Funct Exercise/Act Treatment Duration: Jan 06, 2018 Frequency: At least 5 of 7 days/Wk (IRF) Estimated Hrs Per Day: 1.5 hours per day Agreement: Yes Rehab Potential: Fair Time/GCodes Start Time: 07:15 Stop Time: 07:35 Total Time Billed (hr/min): 20 Billed Treatment Time 1 visit-EX 1 (20 min) SILVINO MOMIN Dec 20, 2017 09:07
[2017-12-20] MEDS: SENNA W/DOCUSATE (SENOKOT S) TABLET PO SCH ×2 (09:50→20:10)
[2017-12-20] MEDS: amLODIPine 5 MG (NORVASC) TAB PO SCH (09:50)
[2017-12-20] MEDS: lisINopril 20 MG (ZESTRIL) TAB PO SCH (09:51)
[2017-12-20] MEDS: LACTOBACILLUS Acidoph/Bulgar (LACTINEX/FLORANEX) TAB PO SCH ×2 (09:51→20:10)
--- NOTE | 2017-12-20 13:21 | Physical Therapy Daily Note ---
PT Daily Note-Current Subjective Pt. anxious to get up and exercise. Looks forward to W for home set up. Pain Numeric Pain Scale: 0-No Pain Mental Status Patient Orientation: Person, Place, Time, Situation Attachments: Other-See Comments ([place], heel protection in bed and sitting) Transfers Functional [place] Measure 0=Not Assessed/NA 4=Minimal Assistance 1=Total Assistance 5=Supervision or Setup 2=Maximal Assistance 6=Modified [place] 3=Moderate Assistance 7=Complete IndependenceIRFPAI Quality Coding Scale 6 Independent with activity with or without an assistive device 5 Patient requires set up or clean up by helper. Patient completes activity by themselves 4 Supervision or touching assist (CGA). [place] provide cues , steadying assist 3 The helper provides less than half the effort to complete the activity 2 The helper provides more than half the effort to complete the activity 1 Dependent. The helper does all the effort to complete an activity 7 Patient refused to complete or attempt activity 9 The patient did not perform the activity before the current illness or injury 88 Not attempted due to Medical conditions or safety concerns Transfers (B, C, W/C) (FIM): 6 Scootin Rollin Supine to/from Sit: 6 Sit to/from Stand: 6 Weight Bearing Right Lower Extremity: Right Full Weight Bearing Left Lower Extremity: Left Touch Toe Bearing Patient is toe touch on the left but heel is not allowed to touch the floor. Gait Training Does the Patient Walk?: Yes Gait (FIM): 6 Distance (FIM): 3=150 ft (300x2,200) Gait Level of Assist: 6 Gait Persons Needed: 0 Gait Assistive Device: FWW pt. needed only assist for [place] as he walked Exercises NuStep Minutes: 10 NuStep Workload: 4 Treatments NUstep with LLE uninvolved, elevated on pillow off of nustep. Assessment Current Status: Good Progress PT Short Term Goals Short Term Goals Time Frame: Dec 23, 2017 Transfers (B,C,W/C) (FIM): 6 Gait (FIM): 5 Gait Distance Comment: 500' Gait Level of Assist: 6 Gait Assistive Device: FWW PT Longterm Goals Gas Regulator Repairer Helper Goals PT Gas Regulator Repairer Helper Goals Time Frame: Jan 06, 2018 Transfers (B,C,W/C) (FIM): 6 Sit to Lying (QC): 6 Lying-Sitting on Side/Bed(QC): 6 Sit to Stand (QC): 6 Rollin Roll Left to Right (QC): 6 Chair/Wqb-uc-Urpjk Xfer(QC): 6 Car Transfer (QC): 6 Does the Patient Walk: Yes Gait (FIM): 6 Distance: 800' Walk 10 feet (QC): 6 Walk 10ft-Uneven Surface(QC): 6 Walk 50ft with 2 Turns (QC): 6 Walk 150 ft (QC): 6 Gait Level of Assist: 6 Gait Assistive Device: FWW Does the Pt use WC or Scooter?: No Stairs (FIM): 6 # of Steps: 12 1 Step (curb) (QC): 6 4 Steps (QC): 6 12 Steps (QC): 6 Stairs Level Of Assist: 6 Picking up an Object (QC): 6 PT Plan Treatment/Plan Treatment Plan: Continue Plan of Care Treatment Plan: Bed Mobility, Education, Functional Activity My, Functional Strength, Group Therapy, Gait, Safety, Therapeutic Exercise, Transfers Treatment Duration: Jan 06, 2018 Frequency: At least 5 of 7 days/Wk (IRF) Estimated Hrs Per Day: 1.5 hours per day Patient and/or Family Agrees t: Yes Safety Risks/Education Patient Education: Gait Training, Transfer Techniques, Correct Positioning, Disease Process (discussed exercise and insulin uptake etc), Safety Issues Teaching Recipient: Patient Teaching Methods: Demonstration, Discussion Response to Teaching: Verbalize Understanding, Return Demonstration, Reinforcement Needed Time/GCodes Time In: 1235 Time Out: 1300 Total Billed Treatment Time: 25 Total Billed Treatment 1,GT15,EX10 G Codes Necessary: No BAMBI PEDROZA CONSTRUCTION FRAMER Dec 20, 2017 13:21
[2017-12-20 19:34] VITALS: BP 113/74
[2017-12-21 05:28] VITALS: BP 115/75
[2017-12-21] MEDS: AMPICILLIN/SULBACTAM INJECTION 3 GM in NS (IVPB) 100 ML IV SCH ×4 (06:20→23:35)
[2017-12-21] MEDS: metFORMIN 500 MG (GLUCOPHAGE) TAB PO SCH ×2 (06:20→17:50)
[2017-12-21] MEDS: LACTOBACILLUS Acidoph/Bulgar (LACTINEX/FLORANEX) TAB PO SCH ×2 (08:31→20:11)
[2017-12-21] MEDS: lisINopril 20 MG (ZESTRIL) TAB PO SCH (08:31)
[2017-12-21] MEDS: amLODIPine 5 MG (NORVASC) TAB PO SCH (08:31)
[2017-12-21] MEDS: SENNA W/DOCUSATE (SENOKOT S) TABLET PO SCH ×2 (08:33→21:08)
[2017-12-21 18:57] VITALS: BP 119/73
[2017-12-22 05:04] VITALS: BP 124/73
[2017-12-22] MEDS: AMPICILLIN/SULBACTAM INJECTION 3 GM in NS (IVPB) 100 ML IV SCH ×3 (05:27→17:07)
[2017-12-22] MEDS: metFORMIN 500 MG (GLUCOPHAGE) TAB PO SCH ×2 (06:06→17:08)
--- NOTE | 2017-12-22 07:57 | Progress Note (SOAP) ---
Subjective Time Seen by Provider: 07:55 Subjective/Events-last exam patient feeling better. Patient feel wound vac is helping Objective Exam Vital Signs Date Time Temp Pulse Resp B/P (MAP) Pulse Ox O2 Delivery O2 Flow Rate FiO2 12/22/17 05:04 98.7 59 16 124/73 (90) 98 Room Air 12/21/17 20:49 Room Air 12/21/17 18:57 96.0 62 16 119/73 (88) 98 Room Air 12/21/17 08:33 Room Air I & O 12/22/17 07:00 Intake Total 2400 ml Balance 2400 ml Capillary Refill : General Appearance: No Apparent Distress, WD/WN Results Lab Laboratory Tests 12/21/17 16:40: Glucometer 117H 12/22/17 05:28: Glucometer 104 Assessment/Plan Assessment/Plan Assess & Plan/Chief Complaint acute and chronic osteomyelitis of left heel. Diabetes. Hypertension.. . 12/17/17. Acute and chronic osteomyelitis of left feels. Diabetes. Hypertension. Patient needs debridement of foot before wound VAC put on. . 12/18/17 osteomyelitis of left heel. Diabetes. Hypertension patient voicing no complaints . 12/19/17. osteomyelitis of left heel. Diabetes. Hypertension. Under control. Patient seems happy. . 12/22/17. Osteomyelitis of left heel. Diabetes under control. Hypertension under good control Clinical Quality Measures DVT/VTE Risk/Contraindication: Risk Factor Score Per Nursin RFS Level Per Nursing on Admit: 4+=Very High ASHWIN DAS DO Dec 22, 2017 07:57
[2017-12-22] MEDS: SENNA W/DOCUSATE (SENOKOT S) TABLET PO SCH ×2 (08:12→21:02)
[2017-12-22] MEDS: lisINopril 20 MG (ZESTRIL) TAB PO SCH (08:12)
[2017-12-22] MEDS: amLODIPine 5 MG (NORVASC) TAB PO SCH (08:12)
[2017-12-22] MEDS: LACTOBACILLUS Acidoph/Bulgar (LACTINEX/FLORANEX) TAB PO SCH ×2 (08:12→21:02)
--- NOTE | 2017-12-22 12:14 | Physical Therapy Daily Note ---
PT Daily Note-Current Subjective Pt laying Supine in bed upon arrival. Pt agrees to PT for FIM scoring. Pain Location: No Pain Reported Mental Status Patient Orientation: Person, Place, Time, Situation Attachments: Other-See Comments (Wound Vac.) Transfers Functional [place] Measure 0=Not Assessed/NA 4=Minimal Assistance 1=Total Assistance 5=Supervision or Setup 2=Maximal Assistance 6=Modified [place] 3=Moderate Assistance 7=Complete IndependenceIRFPAI Quality Coding Scale 6 Independent with activity with or without an assistive device 5 Patient requires set up or clean up by helper. Patient completes activity by themselves 4 Supervision or touching assist (CGA). [place] provide cues , steadying assist 3 The helper provides less than half the effort to complete the activity 2 The helper provides more than half the effort to complete the activity 1 Dependent. The helper does all the effort to complete an activity 7 Patient refused to complete or attempt activity 9 The patient did not perform the activity before the current illness or injury 88 Not attempted due to Medical conditions or safety concerns Transfers (B, C, W/C) (FIM): 6 Scootin Rollin Roll Left to Right (QC): 6 Supine to/from Sit: 6 Sit to/from Stand: 6 Sit to Lying (QC): 6 Sit to Stand (QC): 6 Chair/Oqr-mk-Yjzkq Xfer(QC): 6 Bed to/from Chair: 6 Car Transfer (QC): 6 Weight Bearing Right Lower Extremity: Right Full Weight Bearing Left Lower Extremity: Left Touch Toe Bearing Patient is toe touch on the left but heel is not allowed to touch the floor. Gait Training Does the Patient Walk?: Yes Distance (FIM): 3=150 ft Distance: 250' Walk 10 feet (QC): 6 Walk 50 ft with 2 Turns(QC): 6 Walk 150 ft (QC): 6 Walking 10ft/uneven surface-QC: 6 Gait Level of Assist: 6 Gait Persons Needed: 1 Gait Assistive Device: FWW Pt is not able to place L heel on floor but walks with an otherwise normalized gait pattern. Wheelchair Training Does the Pt Use a Wheelchair?: No Stair Training Stair Training: Handrails/: 2 handrails Stairs (FIM): 6 #of Steps: 16 1 Step (curb) (QC): 6 4 Steps (QC): 6 12 Steps (QC): 6 Stairs: Pattern: Reciprocal Level of Assist: 6 Balance Picking up an Object (QC): 6 Treatments Pt reports needing to use restroom. Pt completes bed mobility. Pt transfers from Supine to EOB to Standing using FWW at Mod I. Pt uses restroom but needs to change pants before leaving room. Pt ambulates in hallway using FWW at Mod I. Pt completes 4 sets of 4 stairs followed by ambulating across a varying surface for at least 10'. Pt completes car transfer and picking up object from floor. Pt returns to room to rest at EOB at eat lunch. Pt is resting with all needs met at end of tx. Assessment Current Status: Good Progress Pt is Mod I with all transfers and ambulation. PT Short Term Goals Short Term Goals Time Frame: Dec 23, 2017 Transfers (B,C,W/C) (FIM): 6 Gait (FIM): 5 Gait Distance Comment: 500' Gait Level of Assist: 6 Gait Assistive Device: FWW PT Cloth Printing Back Tender Goals Cloth Printing Back Tender Goals PT Cloth Printing Back Tender Goals Time Frame: Jan 06, 2018 Transfers (B,C,W/C) (FIM): 6 Sit to Lying (QC): 6 Lying-Sitting on Side/Bed(QC): 6 Sit to Stand (QC): 6 Rollin Roll Left to Right (QC): 6 Chair/Asd-xs-Wmepv Xfer(QC): 6 Car Transfer (QC): 6 Does the Patient Walk: Yes Gait (FIM): 6 Distance: 800' Walk 10 feet (QC): 6 Walk 10ft-Uneven Surface(QC): 6 Walk 50ft with 2 Turns (QC): 6 Walk 150 ft (QC): 6 Gait Level of Assist: 6 Gait Assistive Device: FWW Does the Pt use WC or Scooter?: No Stairs (FIM): 6 # of Steps: 12 1 Step (curb) (QC): 6 4 Steps (QC): 6 12 Steps (QC): 6 Stairs Level Of Assist: 6 Picking up an Object (QC): 6 PT Plan Problem List Problem List: Activity Tolerance Treatment/Plan Treatment Plan: Continue Plan of Care Treatment Plan: Bed Mobility, Education, Functional Activity My, Functional Strength, Group Therapy, Gait, Safety, Therapeutic Exercise, Transfers Treatment Duration: Jan 06, 2018 Frequency: At least 5 of 7 days/Wk (IRF) Estimated Hrs Per Day: 1.5 hours per day Patient and/or Family Agrees t: Yes Safety Risks/Education Patient Education: Gait Training, Transfer Techniques, Correct Positioning, Safety Issues Teaching Recipient: Patient Teaching Methods: Discussion Response to Teaching: Verbalize Understanding Time/GCodes Time In: 1100 Time Out: 1145 Total Billed Treatment Time: 45 Total Billed Treatment 1, GT (15m), FA x2 (30m) YOHANA CARABALLO PTA Dec 22, 2017 12:14
--- NOTE | 2017-12-22 15:27 | Therapy Group Daily Note ---
Therapy Daily Group Note Patient Education Topic Other List Below (Memory Strategies) Exercises LE Seated Exercise, UE Exercise Other/Notes Pt transfers from Supine to Standing using FWW and ambulates to Group at [facility]. PT/OT Group consisted of Introductions (Name, Where you are from & Naming a list of 3 items given for memory), Socialization, UE & LE Exercises, Education over Memory Strategies and a Couple of Memory Strategy Activities. Pt actively participated in Group by completing UE & LE Exercises as well as giving personal strategies the pt uses to help remember tasks. Pt also participated in the 2 Memory Strategy Activities as well. Pt ambulates back to room and lays Supine in bed to rest at the of Group with all needs met. Start Time: 13:00 Stop Time: 14:20 Total Billed Treatment Time: 80 Total Billed Treatment 1, GROUP (80m) YOHANA CARABALLO IT SECURITY MANAGER Dec 22, 2017 15:27
--- NOTE | 2017-12-22 17:06 | Occupational Ther Daily Note ---
OT Current Status-Daily Note Subjective No pain reported. Appearance Pt. agrees to shower. Mental Status/Objective Patient Orientation: Person, Place Functional [place] Measure 0=Not Assessed/NA 4=Minimal Assistance 1=Total Assistance 5=Supervision or Setup 2=Maximal Assistance 6=Modified [place] 3=Moderate Assistance 7=Complete [place] ADL-Treatment Functional [place] Measure 0=Not Assessed/NA 4=Minimal Assistance 1=Total Assistance 5=Supervision or Setup 2=Maximal Assistance 6=Modified [place] 3=Moderate Assistance 7=Complete IndependenceIRFPAI Quality Coding Scale 6 Independent with activity with or without an assistive device 5 Patient requires set up or clean up by helper. Patient completes activity by themselves 4 Supervision or touching assist (CGA). [place] provide cues , steadying assist 3 The helper provides less than half the effort to complete the activity 2 The helper provides more than half the effort to complete the activity 1 Dependent. The helper does all the effort to complete an activity 7 Patient refused to complete or attempt activity 9 The patient did not perform the activity before the current illness or injury 88 Not attempted due to Medical conditions or safety concerns Grooming (FIM): 5 (SBA at sink due to having wound vac on heel.) Oral Hygiene (QC): 4 Bathing (FIM): 5 (SBA in shower to bathe all parts.) Shower/Bathe Self (QC): 4 Upper Body (FIM): 5 Upper Body Dressing (QC): 5 Lower Body Dressing (FIM): 4 (Min assist to thread wound vac through pants.) Lower Body Dressing (QC): 4 On/Off Footwear (QC): 5 Transfers (B, C, W/C) (FIM): 5 (SBA with walker due to having wound vac.) Shower Transfer(FIM): 5 Other Treatment Nursing came in to change wound vac dressing when OT in room. OT assisted with foot positioning as well as body positioning and shower set up while nursing doing this. Education OT Patient Education: Correct positioning, Modified ADL techniques, Progress toward Goal/Update tx plan, Purpose of tx/functional activities, Reviewed precautions, Rehab process, Transfer techniques Teaching Recipient: Patient Teaching Methods: Demonstration, Discussion Response to Teaching: Verbalize Understanding, Return Demonstration OT Short Term Goals Short Term Goals Transfers (B,C,W/C) (FIM): 6 1=Demonstrate adherence to instructed precautions during ADL tasks. 2=Patient will verbalize/demonstrate understanding of assistive devices/ modifications for ADL. 3=Patient will improve strength/tolerance for activity to enable patient to perform ADL's. OT Penitentiary Goals Fixer Supervisor Goals Time Frame: Jan 06, 2018 Eating (FIM): 7 Eating (QC): 6 Groomin Oral Hygiene (QC): 6 Bathing(FIM): 6 Shower/Bathe Self (QC): 6 Upper Body Dressing(FIM): 6 Upper Body Dressing (QC): 6 Lower Body Dressing(FIM): 6 Lower Body Dressing (QC): 6 On/Off Footwear (QC): 6 Toileting(FIM): 6 Toileting Hygiene (QC): 6 Toilet/Commode Transfer(FIM): 6 Toilet/Commode Transfer (QC): 6 Shower Transfer(FIM): 6 (If cleared to shower) Additional Goals: 2-Verbalize Understanding, 3-ImproveStrength/My 1=Demonstrate adherence to instructed precautions during ADL tasks. 2=Patient will verbalize/demonstrate understanding of assistive devices/ modifications for ADL. 3=Patient will improve strength/tolerance for activity to enable patient to perform ADL's. OT Education/Plan Problem List/Assessment Assessment: Decreased Activ Tolerance, Impaired I ADL's Discharge Recommendations Plan/Recommendations: Continue POC Therapy D/C Recommendations: Assisted Living Treatment Plan/Plan of Care Treatment,Training & Education: Yes Patient would benefit from OT for education, treatment and training to promote independence in ADL's, mobility, safety and/or upper extremity function for ADL' s. Plan of Care: ADL Retraining, Functional Mobility, Group Exercise/Act as Ind, UE Funct Exercise/Act Treatment Duration: Jan 06, 2018 Frequency: At least 5 of 7 days/Wk (IRF) Estimated Hrs Per Day: 1.5 hours per day Agreement: Yes Rehab Potential: Fair Time/GCodes Start Time: 09:15 Stop Time: 10:15 Total Time Billed (hr/min): 60 Billed Treatment Time 1, ADL x 4 EKTA EAST OT Dec 22, 2017 17:06
[2017-12-22 18:00] VITALS: BP 112/73
[2017-12-22] MEDS ORDERED: SODI473S7 TOP (19:16)
[2017-12-22] MEDS ORDERED: METF500T4 PO (19:16)
[2017-12-22] MEDS ORDERED: ACID1TAB PO (19:16)
[2017-12-22] MEDS ORDERED: AMLO5TAB2 PO (19:16)
[2017-12-22] MEDS ORDERED: LISI-552 PO (19:16)
[2017-12-23] MEDS: AMPICILLIN/SULBACTAM INJECTION 3 GM in NS (IVPB) 100 ML IV SCH ×4 (00:29→17:28)
[2017-12-23 06:00] VITALS: BP 111/70
[2017-12-23] MEDS: metFORMIN 500 MG (GLUCOPHAGE) TAB PO SCH ×2 (06:21→17:28)
--- NOTE | 2017-12-23 08:43 | Progress Note (SOAP) ---
Subjective Time Seen by Provider: 08:44 Subjective/Events-last exam osteomyelitis of he'll. Patient feels he is doing better. Patient receiving IV antibiotics and wound VAC Objective Exam Vital Signs Date Time Temp Pulse Resp B/P (MAP) Pulse Ox O2 Delivery O2 Flow Rate FiO2 12/23/17 06:00 97.4 61 18 111/70 (84) 98 Room Air 12/22/17 20:40 Room Air 12/22/17 18:00 97.4 78 20 112/73 (86) 100 Room Air 12/22/17 08:53 Room Air I & O 12/23/17 07:00 Intake Total 2925 ml Output Total 650 ml Balance 2275 ml Capillary Refill : General Appearance: No Apparent Distress, WD/WN Results Lab Laboratory Tests 12/22/17 16:04: Glucometer 119H 12/23/17 05:41: Glucometer 110 Assessment/Plan Assessment/Plan Assess & Plan/Chief Complaint acute and chronic osteomyelitis of left heel. Diabetes. Hypertension.. . 12/17/17. Acute and chronic osteomyelitis of left feels. Diabetes. Hypertension. Patient needs debridement of foot before wound VAC put on. . 12/18/17 osteomyelitis of left heel. Diabetes. Hypertension patient voicing no complaints . 12/19/17. osteomyelitis of left heel. Diabetes. Hypertension. Under control. Patient seems happy. . 12/22/17. Osteomyelitis of left heel. Diabetes under control. Hypertension under good control . 12/23/17. Osteomyelitis of left heel. Diabetes better. Hypertension. Patient improving area Patient using wound VAC Clinical Quality Measures DVT/VTE Risk/Contraindication: Risk Factor Score Per Nursin RFS Level Per Nursing on Admit: 4+=Very High ASHWIN DAS DO Dec 23, 2017 08:43
[2017-12-23] MEDS: LACTOBACILLUS Acidoph/Bulgar (LACTINEX/FLORANEX) TAB PO SCH ×2 (09:03→20:57)
[2017-12-23] MEDS: amLODIPine 5 MG (NORVASC) TAB PO SCH (09:04)
[2017-12-23] MEDS: SENNA W/DOCUSATE (SENOKOT S) TABLET PO SCH ×2 (09:04→20:57)
[2017-12-23] MEDS: lisINopril 20 MG (ZESTRIL) TAB PO SCH (09:07)
--- NOTE | 2017-12-23 10:55 | Therapy Team Discharge Summary ---
Therapy Discharge Summary Discharge Recommendations Date of Discharge 12-23-17 Therapy D/C Recommendations: Assisted Living, Assisted (TCU/NH) Occupational Therapy Pt. has been seen by occupational therapy to increase overall strength and independence with daily skills. Prior to pt. receiving his wound vac, pt. was completing most tasks with Mod I. However, once pt. received his wound vac, he began to requires SBA/Min assist with most ADL tasks, due to having vac placement and machine to transport. Pt. is able to ambulate with SBA with someone carrying wound vac for him. Pt. requires assist to don pants and underwear due to needing someone thread the vac machine through his pants. Pt. is transferring to skilled unit to complete wound vac treatment. All needs met. Decreased Activ Tolerance, Impaired I ADL's PT Hatchery Manager Goals Hatchery Manager Goals PT Hatchery Manager Goals Time Frame: Jan 06, 2018 Transfers (B,C,W/C) (FIM): 6 Roll Left to Right (QC): 6 Sit to Lying (QC): 6 Lying-Sitting on Side/Bed(QC): 6 Sit to Stand (QC): 6 Chair/Xiy-xh-Wybfe Xfer(QC): 6 Car Transfer (QC): 6 Does the Patient Walk: Yes Gait (FIM): 6 Distance: 800' Walk 10 feet (QC): 6 Walk 10ft-Uneven Surface(QC): 6 Walk 50ft with 2 Turns (QC): 6 Walk 150 ft (QC): 6 Gait Level of Assist: 6 Gait Assistive Device: FWW Does the Pt use WC or Scooter?: No Stairs (FIM): 6 # of Steps: 12 1 Step (curb) (QC): 6 4 Steps (QC): 6 12 Steps (QC): 6 Stairs Level Of Assist: 6 Picking up an Object (QC): 6 OT Hatchery Manager Goals Hatchery Manager Goals Time Frame: Jan 06, 2018 Eating (FIM): 7 (met) Eating (QC): 6 (met) Oral Hygiene (QC): 6 (met) Grooming(FIM): 6 (not met) Bathing(FIM): 6 (not met) Shower/Bathe Self (QC): 6 (not met) Upper Body Dressing(FIM): 6 (not met) Upper Body Dressing (QC): 6 (not met) Lower Body Dressing(FIM): 6 (not met) Lower Body Dressing (QC): 6 (not met) On/Off Footwear (QC): 6 (not met) Toileting(FIM): 6 (met) Toileting Hygiene (QC): 6 (met) Toilet/Commode Transfer(FIM): 6 (met) Toilet/Commode Transfer (QC): 6 (met) Shower Transfer(FIM): 6 (not met) Additional Goals: 2-Verbalize Understanding, 3-ImproveStrength/My 1=Demonstrate adherence to instructed precautions during ADL tasks. 2=Patient will verbalize/demonstrate understanding of assistive devices/ modifications for ADL. 3=Patient will improve strength/tolerance for activity to enable patient to perform ADL's. EKTA EAST OT Dec 23, 2017 10:55
[2017-12-23] MEDS ORDERED: AMPI3VIA5 IJ (11:18)
--- NOTE | 2017-12-23 11:19 | Physical Therapy Daily Note ---
PT Daily Note-Current Subjective Agreeable to PT. Unsure if he is discharging today or tomorrow. Pain Numeric Pain Scale: 0-No Pain Location: No Pain Reported Mental Status Patient Orientation: Person, Place, Time, Situation Transfers Functional [place] Measure 0=Not Assessed/NA 4=Minimal Assistance 1=Total Assistance 5=Supervision or Setup 2=Maximal Assistance 6=Modified [place] 3=Moderate Assistance 7=Complete IndependenceIRFPAI Quality Coding Scale 6 Independent with activity with or without an assistive device 5 Patient requires set up or clean up by helper. Patient completes activity by themselves 4 Supervision or touching assist (CGA). [place] provide cues , steadying assist 3 The helper provides less than half the effort to complete the activity 2 The helper provides more than half the effort to complete the activity 1 Dependent. The helper does all the effort to complete an activity 7 Patient refused to complete or attempt activity 9 The patient did not perform the activity before the current illness or injury 88 Not attempted due to Medical conditions or safety concerns Transfers (B, C, W/C) (FIM): 7 Roll Left to Right (QC): 6 Supine to/from Sit: 7 Sit to/from Stand: 7 Sit to Lying (QC): 6 Sit to Stand (QC): 6 Chair/Ava-ok-Ilnjr Xfer(QC): 6 Car Transfer (QC): 6 Pt is indep with all functional transfers. Weight Bearing Right Lower Extremity: Right Full Weight Bearing Left Lower Extremity: Left Touch Toe Bearing Patient is toe touch on the left but heel is not allowed to touch the floor. Gait Training Does the Patient Walk?: Yes Gait (FIM): 6 Distance (FIM): 3=150 ft Distance: 300 ft x 2 Walk 10 feet (QC): 6 Walk 50 ft with 2 Turns(QC): 6 Walk 150 ft (QC): 6 Walking 10ft/uneven surface-QC: 6 Gait Assistive Device: Cane Large Base Quad TTWB which he maintains. Mod indep and safe with all gait using FWW. Wheelchair Training Does the Pt Use a Wheelchair?: No Stair Training Stair Training: Handrails/: 2 handrails Stairs (FIM): 6 #of Steps: 12 1 Step (curb) (QC): 6 4 Steps (QC): 6 12 Steps (QC): 6 Stairs: Pattern: Step to Balance Picking up an Object (QC): 5 Exercises Seated Therapy Exercises: Ankle pumps, Long arc quads, Hip flexion Seated Reps: 2 (x 15 with 1 # weight) NuStep Minutes: 15 Assessment Current Status: Excellent Progress Pt meeting PT goals. Excellent progress. PT Short Term Goals Short Term Goals Time Frame: Dec 23, 2017 Transfers (B,C,W/C) (FIM): 6 Gait (FIM): 5 Gait Distance Comment: 500' Gait Level of Assist: 6 Gait Assistive Device: FWW PT Long-Term Goals Long-Term Goals PT Pheresis Specialist Goals Time Frame: Jan 06, 2018 Transfers (B,C,W/C) (FIM): 6 (met) Sit to Lying (QC): 6 (met) Lying-Sitting on Side/Bed(QC): 6 (met) Sit to Stand (QC): 6 (met) Rollin (met) Roll Left to Right (QC): 6 (met) Chair/Yiy-ya-Iozlr Xfer(QC): 6 Car Transfer (QC): 6 (met) Does the Patient Walk: Yes Gait (FIM): 6 (met) Distance: 800' Walk 10 feet (QC): 6 (met) Walk 10ft-Uneven Surface(QC): 6 (met) Walk 50ft with 2 Turns (QC): 6 (met) Walk 150 ft (QC): 6 (met) Gait Level of Assist: 6 Gait Assistive Device: FWW Does the Pt use WC or Scooter?: No Stairs (FIM): 6 (met) # of Steps: 12 1 Step (curb) (QC): 6 (met) 4 Steps (QC): 6 (met) 12 Steps (QC): 6 (met) Stairs Level Of Assist: 6 (met) Picking up an Object (QC): 6 (scored a 5) All goals met to a satisfactory level PT Plan Problem List Problem List: Activity Tolerance, Functional Strength Treatment/Plan Treatment Plan: Discontinue PT, goals met (pt to discharge today; per SW) Treatment Plan: Bed Mobility, Education, Functional Activity My, Functional Strength, Group Therapy, Gait, Safety, Therapeutic Exercise, Transfers Treatment Duration: Jan 06, 2018 Frequency: At least 5 of 7 days/Wk (IRF) Estimated Hrs Per Day: 1.5 hours per day Patient and/or Family Agrees t: Yes Safety Risks/Education Patient Education: Safety Issues Teaching Recipient: Patient Teaching Methods: Discussion Response to Teaching: Verbalize Understanding Time/GCodes Time In: 1030 Time Out: 1110 Total Billed Treatment Time: 40 Total Billed Treatment visit GT 15 EX 25 SILVINO ROSEN PT Dec 23, 2017 11:18
--- NOTE | 2017-12-23 11:22 | Therapy Team Discharge Summary ---
Therapy Discharge Summary Discharge Recommendations Date of Discharge 12/23/17 Therapy D/C Recommendations: Assisted Living, Half-Way (TCU/NH) Physical Therapy This patient has been seen on ARU for continued skilled therapy services post wound on his left heel that has a wound vac in place. He is also newly diagnosed with DM. Prior to medical stay, he was indep and working multimedia developer. Upon admit to our unit, he required min assist with transfers and was sBA with gait and stairs. Treatment has consisted of functional strength to progress gait, transfers, safety and ability to care for himself. He has made excellent progress and is indep to mod indep with all mobility. He maintains his WB status well (he is not to put weight through his left heel). He has met PT goals. Pt to discharge this date to an extended care facility. DC PT. Occupational Therapy Decreased Activ Tolerance, Impaired I ADL's PT Correction Goals Filter Press Tender Goals PT Correction Goals Time Frame: Jan 06, 2018 Transfers (B,C,W/C) (FIM): 6 (met) Roll Left to Right (QC): 6 (met) Sit to Lying (QC): 6 (met) Lying-Sitting on Side/Bed(QC): 6 (met) Sit to Stand (QC): 6 (met) Chair/Xiq-yr-Hwzqj Xfer(QC): 6 Car Transfer (QC): 6 (met) Does the Patient Walk: Yes Gait (FIM): 6 (met) Distance: 800' Walk 10 feet (QC): 6 (met) Walk 10ft-Uneven Surface(QC): 6 (met) Walk 50ft with 2 Turns (QC): 6 (met) Walk 150 ft (QC): 6 (met) Gait Level of Assist: 6 Gait Assistive Device: FWW Does the Pt use WC or Scooter?: No Stairs (FIM): 6 (met) # of Steps: 12 1 Step (curb) (QC): 6 (met) 4 Steps (QC): 6 (met) 12 Steps (QC): 6 (met) Stairs Level Of Assist: 6 (met) Picking up an Object (QC): 6 (scored a 5) All PT goals met to a satisfactory level OT Filter Press Tender Goals Correction Goals Time Frame: Jan 06, 2018 Eating (FIM): 7 (met) Eating (QC): 6 (met) Oral Hygiene (QC): 6 (met) Grooming(FIM): 6 (not met) Bathing(FIM): 6 (not met) Shower/Bathe Self (QC): 6 (not met) Upper Body Dressing(FIM): 6 (not met) Upper Body Dressing (QC): 6 (not met) Lower Body Dressing(FIM): 6 (not met) Lower Body Dressing (QC): 6 (not met) On/Off Footwear (QC): 6 (not met) Toileting(FIM): 6 (met) Toileting Hygiene (QC): 6 (met) Toilet/Commode Transfer(FIM): 6 (met) Toilet/Commode Transfer (QC): 6 (met) Shower Transfer(FIM): 6 (not met) Additional Goals: 2-Verbalize Understanding, 3-ImproveStrength/My 1=Demonstrate adherence to instructed precautions during ADL tasks. 2=Patient will verbalize/demonstrate understanding of assistive devices/ modifications for ADL. 3=Patient will improve strength/tolerance for activity to enable patient to perform ADL's. SILVINO ROSEN PT Dec 23, 2017 11:22
--- NOTE | 2017-12-23 15:03 | Physical Therapy Progress Note ---
Therapy Progress Note Patient was to transfer to outside facility on this date for continued care. Per SW, this will no occur due to insurance and out of network issues. 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 PT will resume in DENZEL Parrish PT Dec 23, 2017 15:03
--- NOTE | 2017-12-23 15:53 | PM & R (SOAP) Progress Note ---
Subjective Time Seen by Provider: 15:50 Subjective/Events-last exam Patient was seen in his room this afternoon Discussed case with DONNA Hassan a holdup for discharge for patient due to insurance reasons SW following up with Patients medical insurance Patient modified Independent for transfers Objective Exam Last Set of Vital Signs Vital Signs Date Time Temp Pulse Resp B/P (MAP) Pulse Ox O2 Delivery O2 Flow Rate FiO2 12/23/17 09:54 Room Air 12/23/17 06:00 97.4 61 18 111/70 (84) 98 Capillary Refill : I&O Intake and Output 12/22/17 23:59 Intake Total 1975 ml Output Total 650 ml Balance 1325 ml Intake Oral 1775 ml IV Total 200 ml Output Urine Total 650 ml # Voids 5 # Bowel Movements 1 General: Alert, Oriented X3, Cooperative, No Acute Distress HEENT: Atraumatic, PERRLA, EOMI, Mucous Memb Moist/[place] Neck: Supple, No JVD Lungs: Clear to Auscultation Heart: Regular Rate Abdomen: Normal Bowel Sounds, Soft, No Tenderness Extremities: Other (Trace edema left foot wrapped with kerlex) Neuro: Other (Normal strength except left leg which is mildly impaired) Results Lab Laboratory Tests 12/20/17 16:19: Glucometer 132H 12/21/17 05:49: Glucometer 104 12/21/17 16:40: Glucometer 117H 12/22/17 05:28: Glucometer 104 12/22/17 16:04: Glucometer 119H 12/23/17 05:41: Glucometer 110 Assessment/Plan Assessment Acute on chronic osteomyelitis s/p debridement OSH and on IV antibiotics as per H&P and now s/p debridement here DR Yeh 12/18/17 awaiting Wound vac application. DM meds being adjusted-HGBA1C 8.6 HTN controlled with meds MIld attention deficit HLP Plan Continue PT/OT and wound care -Dr Yeh consulted and following May need to focus on W/C level of function due to Limited WBS LLE and need for wound vac-Will f/u with DR Yeh re this Team Conference held 11-19-17-See report for full functional update and POC and ELOS Discharge temporarily on hold until appropriate discharge plans can be arranged. KEDAR KUHN MD Dec 23, 2017 15:53
--- NOTE | 2017-12-23 16:38 | Occ Therapy Progress Note ---
Therapy Progress Note Pt. not seen for therapy this date, as he was scheduled to leave and then did not leave due to insurance and transportation issues. Will resume full therapy in a.m. 1640 EKTA EAST OT Dec 23, 2017 16:38
[2017-12-23 18:02] VITALS: BP 110/72
[2017-12-24] MEDS: AMPICILLIN/SULBACTAM INJECTION 3 GM in NS (IVPB) 100 ML IV SCH ×4 (00:22→18:25)
[2017-12-24 06:05] VITALS: BP 109/70
[2017-12-24] MEDS: metFORMIN 500 MG (GLUCOPHAGE) TAB PO SCH ×2 (06:43→18:25)
[2017-12-24] MEDS: amLODIPine 5 MG (NORVASC) TAB PO SCH (08:03)
[2017-12-24] MEDS: LACTOBACILLUS Acidoph/Bulgar (LACTINEX/FLORANEX) TAB PO SCH ×2 (08:03→21:00)
[2017-12-24] MEDS: SENNA W/DOCUSATE (SENOKOT S) TABLET PO SCH ×2 (08:03→21:01)
[2017-12-24] MEDS: lisINopril 20 MG (ZESTRIL) TAB PO SCH (08:03)
--- NOTE | 2017-12-24 08:30 | Progress Note (SOAP) ---
Subjective Time Seen by Provider: 08:26 Subjective/Events-last exam Osteomyelitis of feel. Patient feels is improving. Diabetes under control. Patient not sure where he is going Objective Exam Vital Signs Date Time Temp Pulse Resp B/P (MAP) Pulse Ox O2 Delivery O2 Flow Rate FiO2 12/24/17 06:05 97.6 67 18 109/70 (83) 98 Room Air 12/23/17 20:50 Room Air 12/23/17 18:02 96.7 67 16 110/72 (85) 100 Room Air 12/23/17 09:54 Room Air I & O 12/24/17 07:00 Intake Total 2050 ml Balance 2050 ml Capillary Refill : General Appearance: No Apparent Distress, WD/WN Results Lab Laboratory Tests 12/23/17 16:20: Glucometer 114H 12/24/17 04:45: Glucometer 94 Assessment/Plan Assessment/Plan Assess & Plan/Chief Complaint acute and chronic osteomyelitis of left heel. Diabetes. Hypertension.. . 12/17/17. Acute and chronic osteomyelitis of left feels. Diabetes. Hypertension. Patient needs debridement of foot before wound VAC put on. . 12/18/17 osteomyelitis of left heel. Diabetes. Hypertension patient voicing no complaints . 12/19/17. osteomyelitis of left heel. Diabetes. Hypertension. Under control. Patient seems happy. . 12/22/17. Osteomyelitis of left heel. Diabetes under control. Hypertension under good control . 12/23/17. Osteomyelitis of left heel. Diabetes better. Hypertension. Patient improving area Patient using wound VAC. . 12/24/17. Pneumonitis of the left heel. Diabetes better. Hypertension. Wound VAC off today Clinical Quality Measures DVT/VTE Risk/Contraindication: Risk Factor Score Per Nursin RFS Level Per Nursing on Admit: 4+=Very High ASHWIN DAS DO Dec 24, 2017 08:30
--- NOTE | 2017-12-24 09:46 | Physical Therapy Progress Note ---
Therapy Progress Note Pt was not seen for full therapy time on 12/23/17 as therapy services had been notified by SW that he was scheduled to discharge at 2pm. However, pt did not end up discharging. Will follow with SW and pt on discharge plans. SILVINO ROSEN PT Dec 24, 2017 09:46
--- NOTE | 2017-12-24 10:22 | PM & R (SOAP) Progress Note ---
Subjective Time Seen by Provider: 08:15 Subjective/Events-last exam Patient was seen in his room this AM Patient Modified Independent for transfers Discussed case with Unit Dining Room Maid SW following up with [facility] which is in patients Insurance network to if they will accept him for ongoing care The patient dose not want to go home with roommate at this time Objective Exam Last Set of Vital Signs Vital Signs Date Time Temp Pulse Resp B/P (MAP) Pulse Ox O2 Delivery O2 Flow Rate FiO2 12/24/17 09:00 Room Air 12/24/17 06:05 97.6 67 18 109/70 (83) 98 Capillary Refill : I&O Intake and Output 12/24/17 00:00 Intake Total 3100 ml Balance 3100 ml Intake Oral 2800 ml IV Total 300 ml # Voids 6 General: Alert, Oriented X3, Cooperative, No Acute Distress HEENT: Atraumatic, PERRLA, EOMI, Mucous Memb Moist/[place] Neck: Supple, No JVD Lungs: Clear to Auscultation Heart: Regular Rate Abdomen: Normal Bowel Sounds, Soft, No Tenderness Extremities: Other (Trace edema left foot wrapped with kerlex) Neuro: Other (Normal strength except left leg which is mildly impaired) Results Lab Laboratory Tests 12/21/17 16:40: Glucometer 117H 12/22/17 05:28: Glucometer 104 12/22/17 16:04: Glucometer 119H 12/23/17 05:41: Glucometer 110 12/23/17 16:20: Glucometer 114H 12/24/17 04:45: Glucometer 94 Assessment/Plan Assessment Acute on chronic osteomyelitis s/p debridement OSH and on IV antibiotics as per H&P and now s/p debridement here DR Yeh 12/18/17 awaiting Wound vac application. DM meds being adjusted-HGBA1C 8.6 HTN controlled with meds MIld attention deficit HLP Plan Discharge temporarily on hold until appropriate discharge plans can be arranged. as per above Prior DC wasnt in network holding up discharge for a day Team Conference to be held later today-See report for full functional update and POC and KEDAR GRANADOS MD Dec 24, 2017 10:22
--- NOTE | 2017-12-24 12:00 | Occupational Ther Daily Note ---
OT Current Status-Daily Note Subjective Pt in bed, agrees to treatment. Mental Status/Objective Functional [place] Measure 0=Not Assessed/NA 4=Minimal Assistance 1=Total Assistance 5=Supervision or Setup 2=Maximal Assistance 6=Modified [place] 3=Moderate Assistance 7=Complete [place] ADL-Treatment Pt declined shower today, but would like a sponge bath. Supine to sit with modified independence. Sit to stand with modified independence. Pt completed sponge bath after set up while seated on shower bench. Don pullover shirt after set up. Pt donned underwear and pants after set up. Grooming tasks completed standing at sink. Able to maintain TTWB. Pt brushed teeth and combed hair with modified independence. Pt demonstrated ability to perform toilet transfer with modified independence. Functional [place] Measure 0=Not Assessed/NA 4=Minimal Assistance 1=Total Assistance 5=Supervision or Setup 2=Maximal Assistance 6=Modified [place] 3=Moderate Assistance 7=Complete IndependenceIRFPAI Quality Coding Scale 6 Independent with activity with or without an assistive device 5 Patient requires set up or clean up by helper. Patient completes activity by themselves 4 Supervision or touching assist (CGA). [place] provide cues , steadying assist 3 The helper provides less than half the effort to complete the activity 2 The helper provides more than half the effort to complete the activity 1 Dependent. The helper does all the effort to complete an activity 7 Patient refused to complete or attempt activity 9 The patient did not perform the activity before the current illness or injury 88 Not attempted due to Medical conditions or safety concerns Eating (FIM): 7 (Pt reports feeding self, cutting food, and managing containers without assistance) Eating (QC): 6 Grooming (FIM): 6 Oral Hygiene (QC): 6 Bathing (FIM): 5 Shower/Bathe Self (QC): 5 Upper Body (FIM): 5 Upper Body Dressing (QC): 5 Lower Body Dressing (FIM): 5 Lower Body Dressing (QC): 5 Toilet/Commode Transfer (FIM): 6 Toilet Transfer (QC): 6 Other Treatment Pt requests to ambulate prior to completing UE exercises. Pt performed gait around therapy unit using FWW. TTWB left LE. Pt has no LOB during gait and turns. To therapy gym with FWW. Arm bike [id number] to increase overall strength and activity tolerance needed for ADLs and transfers. Pt completed task at 25 park with steady pace. Two rest breaks during activity. Pt returned to room, resting in bed with needs met after session. OT Short Term Goals Short Term Goals Transfers (B,C,W/C) (FIM): 6 1=Demonstrate adherence to instructed precautions during ADL tasks. 2=Patient will verbalize/demonstrate understanding of assistive devices/ modifications for ADL. 3=Patient will improve strength/tolerance for activity to enable patient to perform ADL's. OT Journeyman Machinist Goals Journeyman Machinist Goals Time Frame: Jan 06, 2018 Eating (FIM): 7 (met) Eating (QC): 6 (met) Groomin (not met) Oral Hygiene (QC): 6 (met) Bathing(FIM): 6 (not met) Shower/Bathe Self (QC): 6 (not met) Upper Body Dressing(FIM): 6 (not met) Upper Body Dressing (QC): 6 (not met) Lower Body Dressing(FIM): 6 (not met) Lower Body Dressing (QC): 6 (not met) On/Off Footwear (QC): 6 (not met) Toileting(FIM): 6 (met) Toileting Hygiene (QC): 6 (met) Toilet/Commode Transfer(FIM): 6 (met) Toilet/Commode Transfer (QC): 6 (met) Shower Transfer(FIM): 6 (not met) Additional Goals: 2-Verbalize Understanding, 3-ImproveStrength/My 1=Demonstrate adherence to instructed precautions during ADL tasks. 2=Patient will verbalize/demonstrate understanding of assistive devices/ modifications for ADL. 3=Patient will improve strength/tolerance for activity to enable patient to perform ADL's. OT Education/Plan Discharge Recommendations Plan/Recommendations: Continue POC Treatment Plan/Plan of Care Patient would benefit from OT for education, treatment and training to promote independence in ADL's, mobility, safety and/or upper extremity function for ADL' s. Plan of Care: ADL Retraining, Functional Mobility, Group Exercise/Act as Ind, UE Funct Exercise/Act Treatment Duration: Jan 06, 2018 Frequency: At least 5 of 7 days/Wk (IRF) Estimated Hrs Per Day: 1.5 hours per day Agreement: Yes Rehab Potential: Fair Time/GCodes Start Time: 08:00 Stop Time: 09:00 Total Time Billed (hr/min): 60 Billed Treatment Time 1 visit, ADLx2(35minutes), EX(15minutes), FA(10minutes) CHANCE JIMENEZ OT Dec 24, 2017 12:00
--- NOTE | 2017-12-24 12:26 | Physical Therapy Daily Note ---
PT Daily Note-Current Subjective Pt is laying in bed pre tx and agrees to PT with no complaints of pain. Pain Numeric Pain Scale: 0-No Pain Location: No Pain Reported Appearance Pt is laying in bed post tx with nurse call, remote, and tray within reach. Mental Status Patient Orientation: Normal For Age Transfers Functional [place] Measure 0=Not Assessed/NA 4=Minimal Assistance 1=Total Assistance 5=Supervision or Setup 2=Maximal Assistance 6=Modified [place] 3=Moderate Assistance 7=Complete IndependenceIRFPAI Quality Coding Scale 6 Independent with activity with or without an assistive device 5 Patient requires set up or clean up by helper. Patient completes activity by themselves 4 Supervision or touching assist (CGA). [place] provide cues , steadying assist 3 The helper provides less than half the effort to complete the activity 2 The helper provides more than half the effort to complete the activity 1 Dependent. The helper does all the effort to complete an activity 7 Patient refused to complete or attempt activity 9 The patient did not perform the activity before the current illness or injury 88 Not attempted due to Medical conditions or safety concerns Transfers (B, C, W/C) (FIM): 6 Scootin Rollin Supine to/from Sit: 6 Sit to/from Stand: 6 Bed to/from Chair: 6 Car Transfer (QC): 6 Pt requires occas cues for safety and following TTWB on the LLE. Weight Bearing Right Lower Extremity: Right Full Weight Bearing Left Lower Extremity: Left Touch Toe Bearing Patient is toe touch on the left but heel is not allowed to touch the floor. Gait Training Does the Patient Walk?: Yes Gait (FIM): 6 Distance: 300 feet x2, 150 feet x4 Gait Level of Assist: 6 Gait Persons Needed: 1 Gait Assistive Device: FWW Pt is able to follow WB precautions without needed verbal cues. Wheelchair Training Does the Pt Use a Wheelchair?: No Stair Training Stair Training: Handrails/: 2 handrails Stairs (FIM): 6 #of Steps: 12 Stairs: Pattern: Reciprocal Level of Assist: 6 Verbal cues needed for safety while on using stairs. Balance Picking up an Object (QC): 4 Exercises Supine Ex: Bridging (10 x2 RLE), Heel Slides (10 x2 RLE), Knee to chest (10 x2 LLE) Standing: Sit to Stand (5 x3) Balance exercises: RLE on the balance disk, LLE in TTWB as pt let go of FWW when able to maintain balance. Added eyes closed to increase difficulty. 5 x3 Treatments Pt performed bed mobility gait training, stair straining, balance exercises, and LE exercises. Disregard DC summary written on 12/23/17, pt did not leave facility, will continue with skilled intervention. Assessment Current Status: Good Progress Pt was able to stand on balance disk with RLE and TTWB on the LLE without using walker for 12 seconds. Adding eyes closed, pt was able to stand for 4 seconds. Pt tolerated walking long distances without pain. PT Short Term Goals Short Term Goals Time Frame: Dec 23, 2017 Transfers (B,C,W/C) (FIM): 6 Gait (FIM): 5 Gait Distance Comment: 500' Gait Level of Assist: 6 Gait Assistive Device: FWW PT Longterm Goals Machine Attendant Goals PT Machine Attendant Goals Time Frame: Jan 06, 2018 Transfers (B,C,W/C) (FIM): 6 (met) Sit to Lying (QC): 6 (met) Lying-Sitting on Side/Bed(QC): 6 (met) Sit to Stand (QC): 6 (met) Rollin (met) Roll Left to Right (QC): 6 (met) Chair/Xxj-jq-Fxinl Xfer(QC): 6 Car Transfer (QC): 6 (met) Does the Patient Walk: Yes Gait (FIM): 6 (met) Distance: 800' Walk 10 feet (QC): 6 (met) Walk 10ft-Uneven Surface(QC): 6 (met) Walk 50ft with 2 Turns (QC): 6 (met) Walk 150 ft (QC): 6 (met) Gait Level of Assist: 6 Gait Assistive Device: FWW Does the Pt use WC or Scooter?: No Stairs (FIM): 6 (met) # of Steps: 12 1 Step (curb) (QC): 6 (met) 4 Steps (QC): 6 (met) 12 Steps (QC): 6 (met) Stairs Level Of Assist: 6 (met) Picking up an Object (QC): 6 (scored a 5) PT Plan Problem List Problem List: Activity Tolerance, Functional Strength, Safety, Balance, Gait, Transfer, Bed Mobility, ROM Treatment/Plan Treatment Plan: Continue Plan of Care Treatment Plan: Bed Mobility, Education, Functional Activity My, Functional Strength, Group Therapy, Gait, Safety, Therapeutic Exercise, Transfers Treatment Duration: Jan 06, 2018 Frequency: At least 5 of 7 days/Wk (IRF) Estimated Hrs Per Day: 1.5 hours per day Patient and/or Family Agrees t: Yes Safety Risks/Education Patient Education: Gait Training, Transfer Techniques, Steps, Correct Positioning, Safety Issues Teaching Recipient: Patient Teaching Methods: Demonstration, Discussion Response to Teaching: Return Demonstration Time/GCodes Time In: 1100 Time Out: 1200 Total Billed Treatment Time: 60 Total Billed Treatment 1 visit 25 min GT 35 min EX SILVINO ROSEN PT Dec 24, 2017 12:26
--- NOTE | 2017-12-24 15:09 | Therapy Group Daily Note ---
Therapy Daily Group Note Patient Education Topic Energy Cons Exercises LE Seated Exercise, UE Exercise Other/Notes Pt ambulated to therapy gym using [facility] for OT/PT group. Group consisted of introductions (name, place living, how many siblings), socialization, UE/LE seated exercises, breathing exercises, prevention education (blood clots, pneumonia, skin break down, work simplification and energy conservation education. Pt was able to appropriately introduce self and actively listening to peers. Pt socialized and contributed to group conversations. Pt completed UE/LE seated exercises, L LE increased difficulty for AROM. Pt verbalized understanding of educational topics by giving strategies and asking questions pertaining to topics. Pt was able to complete trivia activity that promoted critical thinking and problem solving. After therapy, pt lying in bed with call light/phone in reach. All needs met in room. Start Time: 13:00 Stop Time: 15:25 Total Billed Treatment Time: 85 Total Billed Treatment 1-GRP SILVINO MOMIN Dec 24, 2017 15:09
[2017-12-24 19:26] VITALS: BP 111/71
[2017-12-25] MEDS: AMPICILLIN/SULBACTAM INJECTION 3 GM in NS (IVPB) 100 ML IV SCH ×2 (00:26→05:26)
[2017-12-25] MEDS: metFORMIN 500 MG (GLUCOPHAGE) TAB PO SCH (06:26)
[2017-12-25 06:35] VITALS: BP 111/72
[2017-12-25] MEDS: lisINopril 20 MG (ZESTRIL) TAB PO SCH (08:24)
[2017-12-25] MEDS: LACTOBACILLUS Acidoph/Bulgar (LACTINEX/FLORANEX) TAB PO SCH (08:24)
[2017-12-25] MEDS: amLODIPine 5 MG (NORVASC) TAB PO SCH (08:24)
[2017-12-25] MEDS: SENNA W/DOCUSATE (SENOKOT S) TABLET PO SCH (08:24)
--- NOTE | 2017-12-25 08:43 | Progress Note (SOAP) ---
Subjective Time Seen by Provider: 08:41 Subjective/Events-last exam Patient to be discharged today. Patient going for [place] Patient sugars are doing good Objective Exam Vital Signs Date Time Temp Pulse Resp B/P (MAP) Pulse Ox O2 Delivery O2 Flow Rate FiO2 12/25/17 06:35 97.5 63 18 111/72 (85) 99 Room Air 12/24/17 20:50 Room Air 12/24/17 19:26 96.1 65 16 111/71 (84) 100 Room Air 12/24/17 09:00 Room Air I & O 12/25/17 07:00 Intake Total 2240 ml Balance 2240 ml Capillary Refill : General Appearance: No Apparent Distress, WD/WN HEENT: Normal ENT Inspection Neck: Full Range of Motion, Normal Inspection Respiratory: Lungs Clear, Normal Breath Sounds, No Accessory Muscle Use, No Respiratory Distress Cardiovascular: Regular Rate, Rhythm Gastrointestinal: non tender, soft Results Lab Laboratory Tests 12/24/17 16:15: Glucometer 106 12/25/17 06:32: Glucometer 99 Assessment/Plan Assessment/Plan Assess & Plan/Chief Complaint acute and chronic osteomyelitis of left heel. Diabetes. Hypertension.. . 12/17/17. Acute and chronic osteomyelitis of left feels. Diabetes. Hypertension. Patient needs debridement of foot before wound VAC put on. . 12/18/17 osteomyelitis of left heel. Diabetes. Hypertension patient voicing no complaints . 12/19/17. osteomyelitis of left heel. Diabetes. Hypertension. Under control. Patient seems happy. . 12/22/17. Osteomyelitis of left heel. Diabetes under control. Hypertension under good control . 12/23/17. Osteomyelitis of left heel. Diabetes better. Hypertension. Patient improving area Patient using wound VAC. . 12/24/17. Pneumonitis of the left heel. Diabetes better. Hypertension. Wound VAC off today. . 12/25/17. Osteomyelitis of the left heel. Diabetes under control. Hypertension. Patient be discharged today to [facility] Clinical Quality Measures DVT/VTE Risk/Contraindication: Risk Factor Score Per Nursin RFS Level Per Nursing on Admit: 4+=Very High ASHWIN DAS DO Dec 25, 2017 08:43
--- NOTE | 2017-12-25 08:45 | PM & R (SOAP) Progress Note ---
Subjective Time Seen by Provider: 07:30 Subjective/Events-last exam Patient was seen in his rrom this AM Patient Modified Independent for transfers. Objective Exam Last Set of Vital Signs Vital Signs Date Time Temp Pulse Resp B/P (MAP) Pulse Ox O2 Delivery O2 Flow Rate FiO2 12/25/17 06:35 97.5 63 18 111/72 (85) 99 Room Air Capillary Refill : I&O Intake and Output 12/25/17 00:00 Intake Total 1950 ml Balance 1950 ml Intake Oral 1650 ml IV Total 300 ml # Voids 6 General: Alert, Oriented X3, Cooperative, No Acute Distress HEENT: Atraumatic, PERRLA, EOMI, Mucous Memb Moist/[place] Neck: Supple, No JVD Lungs: Clear to Auscultation Heart: Regular Rate Abdomen: Normal Bowel Sounds, Soft, No Tenderness Extremities: Other (Trace edema left foot wrapped with kerlex) Neuro: Other (Normal strength except left leg which is mildly impaired) Results Lab Laboratory Tests 12/22/17 16:04: Glucometer 119H 12/23/17 05:41: Glucometer 110 12/23/17 16:20: Glucometer 114H 12/24/17 04:45: Glucometer 94 12/24/17 16:15: Glucometer 106 12/25/17 06:32: Glucometer 99 Assessment/Plan Assessment Acute on chronic osteomyelitis s/p debridement OSH and on IV antibiotics as per H&P and now s/p debridement here DR Yeh 12/18/17 awaiting Wound vac application. DM meds being adjusted-HGBA1C 8.6 HTN controlled with meds MIld attention deficit HLP [facility] [place] [facility] and IV antibiotics and wound care F/U with PCP and Surgeon in [place] See orders. KEDAR KUHN MD Dec 25, 2017 08:45
[2017-12-25 10:15] VITALS: BP 111/72
--- NOTE | 2017-12-25 11:30 | Therapy Team Discharge Summary ---
Therapy Discharge Summary Discharge Recommendations Date of Discharge Dec 25, 2017 at 09:15 Therapy D/C Recommendations: Assisted Living, Residential (TCU/[facility]) Physical Therapy Refer to addendum dated 12/23/17 for discharge summary. All goals met. Pt made excellent progress. Occupational Therapy Decreased Safety Aware, Impaired I ADL's PT Halfway Goals Halfway Goals PT Halfway Goals Time Frame: Jan 06, 2018 Transfers (B,C,W/C) (FIM): 6 (met) Roll Left to Right (QC): 6 (met) Sit to Lying (QC): 6 (met) Lying-Sitting on Side/Bed(QC): 6 (met) Sit to Stand (QC): 6 (met) Chair/Wql-ks-Rusyk Xfer(QC): 6 Car Transfer (QC): 6 (met) Does the Patient Walk: Yes Gait (FIM): 6 (met) Distance: 800' Walk 10 feet (QC): 6 (met) Walk 10ft-Uneven Surface(QC): 6 (met) Walk 50ft with 2 Turns (QC): 6 (met) Walk 150 ft (QC): 6 (met) Gait Level of Assist: 6 Gait Assistive Device: FWW Does the Pt use WC or Scooter?: No Stairs (FIM): 6 (met) # of Steps: 12 1 Step (curb) (QC): 6 (met) 4 Steps (QC): 6 (met) 12 Steps (QC): 6 (met) Stairs Level Of Assist: 6 (met) Picking up an Object (QC): 6 (scored a 5) OT Halfway Goals Ham Curer Goals Time Frame: Jan 06, 2018 Eating (FIM): 7 (met) Eating (QC): 6 (met) Oral Hygiene (QC): 6 (met) Grooming(FIM): 6 (not met) Bathing(FIM): 6 (not met) Shower/Bathe Self (QC): 6 (not met) Upper Body Dressing(FIM): 6 (not met) Upper Body Dressing (QC): 6 (not met) Lower Body Dressing(FIM): 6 (not met) Lower Body Dressing (QC): 6 (not met) On/Off Footwear (QC): 6 (not met) Toileting(FIM): 6 (met) Toileting Hygiene (QC): 6 (met) Toilet/Commode Transfer(FIM): 6 (met) Toilet/Commode Transfer (QC): 6 (met) Shower Transfer(FIM): 6 (not met) Additional Goals: 2-Verbalize Understanding, 3-ImproveStrength/My 1=Demonstrate adherence to instructed precautions during ADL tasks. 2=Patient will verbalize/demonstrate understanding of assistive devices/ modifications for ADL. 3=Patient will improve strength/tolerance for activity to enable patient to perform ADL's. SILVINO ROSEN PT Dec 25, 2017 11:30
== END 2017-12-25 09:15 | DRG 982 ==
LOC: EDPENDDISTM 12-25 10:00 → EDPENDDISDT 12-25 10:00
PROVIDERS: ADMIT Physical Medicine & Rehabilitation; ATTEND Physical Medicine & Rehabilitation
PROC: 0LBW0ZZ Excision of Left Foot Tendon, Open Approach (ICD-10-PCS; principal; 2017-12-18)
DX: E11.69 Type 2 diabetes mellitus with other specified complication (principal); M86.172 Other acute osteomyelitis, left ankle and foot; M86.672 Other chronic osteomyelitis, left ankle and foot; E11.621 Type 2 diabetes mellitus with foot ulcer; L97.429 Non-pressure chronic ulcer of left heel and midfoot with unspecified severity; I10 Essential (primary) hypertension; E78.5 Hyperlipidemia, unspecified; R41.840 Attention and concentration deficit; B95.1 Streptococcus, group B, as the cause of diseases classified elsewhere; Z79.84 Long term (current) use of oral hypoglycemic drugs
CPT/HCPCS: 36415; 80053; 80061; 82962; 83036; 85025